=== PATIENT | male | born 1950 | race Caucasian/White ===

== ENCOUNTER 2019-07-19 12:21 | Observation (INO) | payer OTHER ==
[2019-07-19 12:30] VITALS: RESP 18
[2019-07-19] MEDS ORDERED: SODIUM CHLORIDE 0.9% 500 ML 500 ML IV STA (12:54)
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
[2019-07-19 13:22] LABS: Basophils % (A) 0 %; Eosinophils # (A) 0.1 k/uL (0-0.7); Eosinophils % (A) 1 %; HCT 45.7 % (39.0-53.0); HGB 14.7 gm/dL (13.0-17.5); Lymphocytes # (A) 1.2 k/uL (1.0-4.8); Lymphocytes % (A) 18 %; MCH 29.3 pg (25.0-35.0); MCHC 32.2 g/dL (31.0-37.0); MCV 91.2 fL (80.0-100.0); Mean Platelet Volume 7.2; Monocytes # (A) 0.3 k/uL (0-1.0); Monocytes % (A) 4 %; Neutrophils # (A) 5.2 k/uL (1.3-7.7); Neutrophils % (A) 75 %; Platelet Count 308 k/uL (150-450); RBC 5.02 m/uL (4.30-5.90); RDW 12.7 % (11.5-15.5); WBC 6.8 k/uL (3.8-10.6)
[2019-07-19 13:30] LABS: INR 0.9 (<1.2); Partial Thromboplastin Time 24.7 sec (22.0-30.0); Prothrombin Time 9.6 sec (9.0-12.0)
--- NOTE | 2019-07-19 13:39 | CT ---
EXAMINATION TYPE: CT brain wo con for TPA DATE OF EXAM: 07/19/2019 COMPARISON: None INDICATION: Lt arm numbness, MORALES DLP: 1088 mGycm, Automated exposure control for dose reduction was used. CONTRAST: None CT of the brain is performed utilizing 3 mm thick sections through the posterior fossa and 3 mm thick sections through the remaining calvarium. Study is performed within 24 hours of arrival to the hosp ital. No abnormal hyperdensity is present to suggest an acute intracranial hemorrhage. No mass lesion is evident. No acute infarcts are evident. Tiny lacunar infarct or Virchow-Trey space at the inferior left basal ganglion. Ventricles and sulci are appropriate for the patient age. Paranasal sinuses and mastoid air cells within the [id number] are clear. IMPRESSIONS: 1. No acute intracranial process. 2. Old appearing lacunar infarct or normal variant Virchow-Trey space inferior left basal ganglion.
[2019-07-19 13:42] LABS: ALT 34 U/L (4-49); AST 34 U/L (17-59); African American GFR (CKD) >90 (>60 ml/min/1.73 sqM); Albumin 3.8 g/dL (3.5-5.0); Alkaline Phosphatase 88 U/L (38-126); Anion Gap 7 mmol/L; Blood Urea Nitrogen 14 mg/dL (9-20); Calcium 9.1 mg/dL (8.4-10.2); Carbon Dioxide 25 mmol/L (22-30); Chloride 110 mmol/L (98-107); Glucose 126 mg/dL (74-99); Non-African American GFR(CKD) 88 (>60 ml/min/1.73 sqM); Potassium 4.3 mmol/L (3.5-5.1); Sodium 142 mmol/L (137-145); Total Bilirubin 0.5 mg/dL (0.2-1.3); Total Protein 6.6 g/dL (6.3-8.2)
--- NOTE | 2019-07-19 13:54 | CT ---
EXAMINATION TYPE: CT angio head neck DATE OF EXAM: 07/19/2019 HISTORY: Lt arm numbness, MORALES COMPARISON: None CT DLP: 717.1 mGycm. Automated Exposure Control for Dose Reduction was Utilized. TECHNIQUE: CTA scan of the neck is performed with IV Contrast, patient injected with 65 mL of Isovue 370, axial images are obtained, coronal and sagittal reformatted images are reviewed. Three-D recons tructed images are created on an independent workstation and reviewed. Source images are reviewed. FINDINGS: Carotid/Vascular Structures: There is a three-vessel arch. Vertebral arteries are codominant. The com mon carotid arteries bifurcate into internal and external carotid arteries without stenosis. Vertebra l arteries and internal carotid arteries are patent to the skull base. Cervical of [place]: Vertebral basilar system appears normal. Posterior cerebral vasculature is unrema rkable. Internal carotid arteries bifurcate normally into A1 and M1 segments. A2 segments are normal. The anterior communicating artery is patent. Posterior communicating arteries are absent. IMPRESSION: 1. No flow-limiting stenosis bilateral carotid bifurcations. 2. Normal [place] of [place]
--- NOTE | 2019-07-19 13:55 | XR ---
EXAMINATION TYPE: XR chest 2V DATE OF EXAM: 07/19/2019 COMPARISON: None INDICATION: Altered mental status TECHNIQUE: Frontal and lateral views of the chest are obtained. FINDINGS: The heart size is normal. The pulmonary vasculature is normal. The lungs are clear. IMPRESSION: 1. No acute pulmonary process.
[2019-07-19] MEDS ORDERED: ASPIRIN 325 MG TAB PO STA ×2 (14:15→16:19)
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
[2019-07-20 04:51] LABS: Cholesterol 164 mg/dL (<200); HDL Cholesterol 49 mg/dL (40-60); LDL Cholesterol,Calculated 100 mg/dL (0-99); Triglycerides 75 mg/dL (<150)
[2019-07-20] MEDS ORDERED: ASPIRIN 325 MG TAB PO SCH (09:00)
--- NOTE | 2019-07-20 10:59 | ECHOF ---
Referral Reason:CVA/ TIA MEASUREMENTS -------- HEIGHT: 175.3 cm WEIGHT: 98.9 kg BP: 178/101 RVIDd: 4.4 cm (< 3.3) IVSd: 1.4 cm (0.6 - 1.1) LVIDd: 4.8 cm (3.9 - 5.3) LVPWd: 1.6 cm (0.6 - 1.1) IVSs: 2.0 cm LVIDs: 3.3 cm LVPWs: 2.1 cm LAESV Index (A-L): 38.05 ml/m Ao Diam: 3.7 cm (2.0 - 3.7) AV Cusp: 2.5 cm (1.5 - 2.6) MV EXCURSION: 21.866 mm (> 18.000) MV EF SLOPE: 119 mm/s (70 - 150) EPSS: 0.8 cm MV E Dio: 0.78 m/s MV DecT: 209 ms MV A Dio: 0.58 m/s MV E/A Ratio: 1.34 RAP: 5.00 mmHg RVSP: 16.42 mmHg FINDINGS -------- Resting bradycardia (HR<60bpm). This was a technically difficult study with suboptimal apical views. The left ventricular size is normal. There is moderate concentric left ventricular hypertrophy. O verall left ventricular systolic function is normal with, an EF between 55 - 60 %. The diastolic fi lling pattern is normal for the age of the patient 13.28. The right ventricle is moderately enlarged. LA is moderately dilated 34-39 ml/m2 The right atrium is mildly enlarged. 5.0mg of Lumason was utilized for enhancement of images Interatrial and interventricular septum intact. The aortic valve is trileaflet and appears structurally normal. There is no evidence of aortic regu rgitation. There is no evidence of aortic stenosis. Gxbe-ft-[id number] mitral regurgitation is present. Mild tricuspid regurgitation present. There is no evidence of pulmonary hypertension. The right v entricular systolic pressure, as measured by Doppler, is 16.42mmHg. There is no pulmonic regurgitation present. The aortic root size is normal. IVC Not well visulized. There is no pericardial effusion. CONCLUSIONS -------- 1. Resting bradycardia (HR<60bpm). 2. This was a technically difficult study with suboptimal apical views. 3. The left ventricular size is normal. 4. There is moderate concentric left ventricular hypertrophy. 5. Overall left ventricular systolic function is normal with, an EF between 55 - 60 %. 6. The diastolic filling pattern is normal for the age of the patient 13.28 7. The right ventricle is moderately enlarged. 8. LA is moderately dilated 34-39 ml/m2 9. The right atrium is mildly enlarged. 10. 5.0mg of Lumason was utilized for enhancement of images 11. Interatrial and interventricular septum intact. 12. The aortic valve is trileaflet and appears structurally normal. 13. There is no evidence of aortic regurgitation. 14. There is no evidence of aortic stenosis. 15. [id number] mitral regurgitation is present. 16. Mild tricuspid regurgitation present. 17. There is no evidence of pulmonary hypertension. 18. The right ventricular systolic pressure, as measured by Doppler, is 16.42mmHg. 19. There is no pulmonic regurgitation present. 20. The aortic root size is normal. 21. IVC Not well visulized. 22. There is no pericardial effusion. SHEET CATCHER: Selma Brown RDCS
--- NOTE | 2019-07-20 11:23 | P.DS ---
Providers Date of admission: 07/19/19 16:19 Attending physician: Zeeshan Yen Consults: 07/20/19 10:26 Consult Physician Routine Consulting Provider: Chauncey Gonzalez Consult Reason/Comments: TIA Do you want consulting provider notified?: Yes Primary care physician: Stated None Hospital Course: Patient is admitted for a TIA involving the left arm which is tingling and numbness. Patient will be a valid by neurology his symptoms completely resolved after neurological evaluation if needed will get an MRI for him echocardiogram is pending rest of the workup including CT angios and CT of the head did not show any significant acute stroke. Patient blood pressure is bit elevated but patient will not be started on any the hypertensive medications at this time with as patient probably had TIA. will be referred to PCP after evaluation by neurology patient will be discharged. PHYSICAL EXAMINATION: GENERAL: The patient is alert and oriented x3, not in any acute distress. Well developed, well nourished. HEENT: Pupils are round and equally reacting to light. EOMI. No scleral icterus. No conjunctival pallor. Normocephalic, atraumatic. No pharyngeal erythema. No thyromegaly. CARDIOVASCULAR: S1 and S2 present. No murmurs, rubs, or gallops. PULMONARY: Chest is clear to auscultation, no wheezing or crackles. ABDOMEN: Soft, nontender, nondistended, normoactive bowel sounds. No palpable organomegaly. MUSCULOSKELETAL: No joint swelling or deformity. EXTREMITIES: No cyanosis, clubbing, or pedal edema. NEUROLOGICAL: Gross neurological examination did not reveal any focal deficits. SKIN: No rashes. The rest of the medical problems hospital physician: Kimberly which might be from yesterday Plan - Discharge Summary Discharge Rx Participant: Yes New Discharge Prescriptions: New Aspirin 325 mg PO DAILY #30 tab Atorvastatin Calcium [Lipitor] 20 mg PO HS #30 tab Discharge Medication List Aspirin 325 mg PO DAILY #30 tab 07/20/19 [Rx] Atorvastatin Calcium [Lipitor] 20 mg PO HS #30 tab 07/20/19 [Rx] Follow up Appointment(s)/Referral(s): Jerri Duggan MD [STAFF PHYSICIAN] - 1 Week Discharge Disposition: HOME SELF-CARE
[2019-07-20] MEDS ORDERED: ATORVASTATIN 10 MG TAB PO SCH (12:15)
[2019-07-20 12:20] VITALS: BP 179/98; PULSE 61; TEMP 97.7
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
--- NOTE | 2019-07-20 15:09 | MR ---
"EXAMINATION TYPE: MR brain wo con DATE OF EXAM: 07/20/2019 COMPARISON: CT brain one day earlier. HISTORY: Lt arm numbness, TIA vs CVA TECHNIQUE: Multiplanar, multisequence imaging of the brain and brainstem is performed without IV cont rast. FINDINGS: Diffusion weighted images demonstrate multifocal areas of increased signal on diffusion-weighted imag es with diminished signal on ADC mapping involving the frontal and parietal lobes on the right throug hout the predominant subcortical levels. For reference there is serpiginous 12 x 8 mm area diffusion series 305 image 176 with T2 hyperintensity. There is no significant extra-axial fluid collection. The ventricular system and cisternal spaces ar e normal in size and appearance. The brain volume is age appropriate. Few tiny scattered foci of T2 hyperintensity noted throughout the deep white matter bilaterally. Midline structures demonstrate normal morphology. The craniocervical junction appears within normal limits. Normal vascular flow voids are present. Tiny eccentric mucosal thickening in the right maxill stevenson sinus with additional tiny bilateral polyps and/or cysts. Remainder sinuses clear. Globes are int act bilaterally. IMPRESSION: Multifocal areas of acute infarct in the right frontal and parietal lobes MCA distributio n are noted. A Yellow level critical message alert has been initiated for Zeeshan Yen MD via the [employer] [facility] | Critical Results System on 07/20/2019 3:06 PM. This message alert has been sent to Zeeshan ryan MD via the preferences provided by the clinician for the receipt of Radiology Critical Findin gs. Message ID [id number]."
== END 2019-07-20 16:40 | disposition home or self-care (01) ==
LOC: EC 12:21 → 3SCARD 16:19
PROVIDERS: ADMIT Internal Medicine; ATTEND Internal Medicine
DX: G45.9 Transient cerebral ischemic attack, unspecified (principal); R03.0 Elevated blood-pressure reading, without diagnosis of hypertension; E78.5 Hyperlipidemia, unspecified; E66.9 Obesity, unspecified; Z68.33 Body mass index [BMI] 33.0-33.9, adult; Z79.82 Long term (current) use of aspirin; Z79.899 Other long term (current) drug therapy; Z11.59 Encounter for screening for other viral diseases
CPT/HCPCS: 96360; 99285; 36415; 93005; 93306; 97161; 97165; 80061 ×2; 80053; 84484; 85025; 85610; 85730; 71046; 70496; 70450; 70498; 70551; G0378 ×2; U0003; Q9950; Q9967

== ENCOUNTER 2020-12-04 16:07 | Inpatient (IN) | payer MEDICARE, SELFPAY ==
[2020-12-04] MEDS ORDERED: ASPIRIN 81 MG PO STA (16:43)
[2020-12-04] MEDS ORDERED: NITROGLYCERIN SL TABS 0.4 MG TAB SUBLINGUAL STA ×3 (16:43)
[2020-12-04] MEDS ORDERED: SODIUM CHLORIDE 0.9% 500 ML 500 ML IV STA (16:43)
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
[2020-12-04 17:04] LABS: Albumin 4.1 g/dL (3.5-5.0); Calcium 9.1 mg/dL (8.4-10.2); INR 0.9 (<1.2); Magnesium 1.9 mg/dL (1.6-2.3); Potassium 4.3 mmol/L (3.5-5.1); Prothrombin Time 9.6 sec (9.0-12.0); Total Bilirubin 0.4 mg/dL (0.2-1.3); Total Protein 7.1 g/dL (6.3-8.2)
[2020-12-04] MEDS ORDERED: hydrALAZINE HCL 20 MG/ML 1 ML VIAL IVP STA ×2 (17:21→20:10)
[2020-12-04 17:25] LABS: Basophils # (A) 0.1 k/uL (0-0.2); Basophils % (A) 0 %; Eosinophils # (A) 0.2 k/uL (0-0.7); Eosinophils % (A) 2 %; HCT 46.5 % (39.0-53.0); HGB 14.8 gm/dL (13.0-17.5); Lymphocytes # (A) 2.1 k/uL (1.0-4.8); Lymphocytes % (A) 19 %; MCH 29.1 pg (25.0-35.0); MCHC 31.8 g/dL (31.0-37.0); MCV 91.5 fL (80.0-100.0); Mean Platelet Volume 7.3; Monocytes # (A) 0.5 k/uL (0-1.0); Monocytes % (A) 5 %; Neutrophils # (A) 8.1 k/uL (1.3-7.7); Neutrophils % (A) 72 %; Platelet Count 312 k/uL (150-450); RBC 5.08 m/uL (4.30-5.90); RDW 12.5 % (11.5-15.5); WBC 11.3 k/uL (3.8-10.6)
[2020-12-04] MEDS ORDERED: HEPARIN SODIUM 1,000 UN/ML (10ML VL) IV ONE ×2 (17:27→19:54)
[2020-12-04] MEDS ORDERED: HEPARIN SOD,PORK IN 0.45% NACL 25,000 UNIT in 0.45% NACL 1 250ML.BAG IV SCH (17:30)
--- NOTE | 2020-12-04 19:11 | CT ---
EXAMINATION TYPE: CT angio thor/abd pel aorta DATE OF EXAM: 12/04/2020 COMPARISON: None HISTORY: Severe chest pain CT DLP: 2355.8 mGycm. Automated Exposure Control for Dose Reduction was Utilized. CONTRAST: CT scan of the thorax, abdomen and pelvis is performed without and with IV Contrast, patient injected with 100 mL of Isovue 370. Three-dimensional reconstructions performed on an alternate workstation FINDINGS: The aorta shows normal caliber at the ascending aorta measuring approximately 3.5 cm with t he root measuring 3.8 cm, proximal descending aorta is mildly ectatic at 3 cm, the aorta measures marisol roximately 2.6 cm at the level of the hiatus is normal within the abdomen. There is no evident dissec tion. 3 super aortic branch vessels are present and are patent. The celiac axis, superior mesenteric artery, bilateral renal arteries, inferior mesenteric artery, common iliac, internal and external edmond ac arteries, common femoral and proximal deep and superficial femoral arteries are normal LUNGS: The lungs are grossly clear, there is no concerning parenchymal mass or nodule identified. T here is no pleural effusion or pneumothorax seen. The tracheobronchial tree is patent. MEDIASTINUM: There are no greater than 1 cm hilar or mediastinal lymph nodes. No pericardial effusi on is seen. OTHER: No additional significant abnormality is seen. LIVER/GB: No significant abnormality is appreciated. PANCREAS: No significant abnormality is seen. SPLEEN: No significant abnormality is seen. ADRENALS: No significant abnormality is seen. KIDNEYS: No significant abnormality is seen. BOWEL: Diverticular changes are present especially in the sigmoid colon, descending colon, the append ix is normal. GENITAL ORGANS: Prostate is enlarged and shows associated calcification. LYMPH NODES: No greater than 1cm abdominal or pelvic lymph nodes are appreciated. OSSEOUS STRUCTURES: Degenerative disc changes, facet arthropathy noted especially in the lower lumbar spine. OTHER: There is a right inguinal hernia containing fat, umbilical hernia contains fat. IMPRESSION: No abnormality evident to account for patient's symptoms. Diverticulosis.
[2020-12-04] MEDS ORDERED: NITROGLYCERIN SL TABS 0.4 MG TAB SUBLINGUAL PRN (20:02)
[2020-12-04] MEDS: HEPARIN SOD,PORK IN 0.45% NACL 25,000 UNIT in 0.45% NACL 1 250ML.BAG IV SCH (20:26)
[2020-12-04] MEDS: ATORVASTATIN 80 MG TAB PO SCH (21:52)
[2020-12-04] MEDS: METOPROLOL TARTRATE 25 MG TAB PO SCH (21:52)
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
[2020-12-05] MEDS: NITROGLYCERIN OINT 1 INCH/GM PACKET TOPICAL SCH ×4 (01:37→18:36)
[2020-12-05] MEDS ORDERED: HEPARIN SODIUM 1,000 UN/ML (10ML VL) IV PRN (03:51)
[2020-12-05] MEDS ORDERED: ALPRAZolam 0.5 MG TAB PO PRN (08:20)
[2020-12-05] MEDS ORDERED: ALPRAZolam 0.25 MG TAB PO PRN (08:20)
[2020-12-05] MEDS ORDERED: ASPIRIN 325 MG TAB PO SCH (09:00)
[2020-12-05] MEDS: METOPROLOL TARTRATE 25 MG TAB PO SCH ×2 (09:39→21:44)
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
[2020-12-05 10:59] LABS: Chol/HDL Ratio 4.17 Ratio; HDL Cholesterol 44.8 mg/dL (40.00-60.00); LDL Cholesterol,Calculated 113.8 mg/dL (0.0-131.0); VLDL Calculation 28.4 mg/dL (5.00-40.00)
--- NOTE | 2020-12-05 11:41 | ECHOF ---
Referral Reason:LV function MEASUREMENTS -------- HEIGHT: 175.3 cm WEIGHT: 106.1 kg BP: IVSd: 1.4 cm (0.6 - 1.1) LVIDd: 3.4 cm (3.9 - 5.3) LVPWd: 1.5 cm (0.6 - 1.1) EDV(Teich): 48 ml IVSs: 2.0 cm LVIDs: 1.6 cm LVPWs: 1.9 cm %IVS Thck: 40 % ESV(Teich): 7 ml EF(Teich): 86 % %FS: 54 % SV(Teich): 42 ml Ao Diam: 3.6 cm (2.0 - 3.7) LA Diam: 3.0 cm (2.7 - 3.8) AV Cusp: 1.8 cm (1.5 - 2.6) EPSS: 1.5 cm MV E Dio: 0.56 m/s MV DecT: 200 ms MV Dec Nolan: 2.8 m/s MV A Dio: 0.78 m/s MV E/A Ratio: 0.72 MV PHT: 58 ms MR Vmax: 1.28 m/s MR maxP.51 mmHg AV Vmax: 1.40 m/s AV maxP.89 mmHg TR Vmax: 1.59 m/s TR maxP.17 mmHg RAP: 5.00 mmHg RVSP: 15.17 mmHg MV EF SLOPE: 94.59 mm/s (70 - 150) MV EXCURSION: 13.60 mm (> 18.000) FINDINGS -------- This was a technically difficult study with suboptimal views. The left ventricular size is normal. There is moderate concentric left ventricular hypertrophy. O verall left ventricular systolic function is normal with, an EF between 55 - 60 %. The right ventricle is normal in size. The left atrial size is normal. The right atrial size is normal. Lumason used The aortic valve was not well visualized. The mitral valve was not well visualized. There is trace mitral regurgitation. The tricuspid valve was not well visualized. Trace tricuspid regurgitation present. Right ventric ular systolic pressure is normal at < 35 mmHg. The pulmonic valve was not well visualized. The aortic root size is normal. IVC Not well visulized. There is no pericardial effusion. CONCLUSIONS -------- 1. The left ventricular size is normal. 2. There is moderate concentric left ventricular hypertrophy. 3. Overall left ventricular systolic function is normal with, an EF between 55 - 60 %. 4. There is trace mitral regurgitation. 5. Trace tricuspid regurgitation present. 6. There is no pericardial effusion. HEAD AND NECK SURGEON: Rosy Acevedo RDCS
[2020-12-05] MEDS ORDERED: VERAPAMIL 2.5 MG/ML 2 ML AMP ONE (11:51)
[2020-12-05] MEDS ORDERED: LIDOCAINE 1% INJ 10MG/ML (20 ML MDV) ONE (11:51)
[2020-12-05] MEDS ORDERED: IV FLUID CONTINUATION 600 ML IV ONE (12:05)
[2020-12-05] MEDS ORDERED: MIDAZOLAM 2 MG/2 ML VIAL IVP ONE (12:13)
[2020-12-05] MEDS ORDERED: LIDOCAINE 1% INJ 10MG/ML (20 ML MDV) SQ ONE (12:26)
[2020-12-05] MEDS ORDERED: VERAPAMIL SYRINGE (5 MG/10 ML) INTRAARTER ONE (12:28)
[2020-12-05] MEDS ORDERED: HEPARIN SODIUM 1,000 UN/ML (10ML VL) ONE (12:28)
[2020-12-05] MEDS ORDERED: HEPARIN SODIUM 1,000 UN/ML (10ML VL) IVP ONE (12:29)
[2020-12-05] MEDS: SODIUM CHLORIDE 0.9% 1,000 ML in EMPTY BAG 1 BAG IV SCH (13:16)
[2020-12-05] MEDS: NITROGLYCERIN 1000MCG/10ML SYRINGE INTRACORON ONE ×2 (13:17→13:35)
[2020-12-05] MEDS ORDERED: HYDROmorphone 1 MG/ML 1 ML SYRINGE ONE (13:22)
[2020-12-05] MEDS ORDERED: HYDROmorphone 1 MG/ML 1 ML SYRINGE IVP ONE (13:25)
[2020-12-05] MEDS ORDERED: TIROFIBAN BOLUS 12.5MG/250 ML BAG IV ONE (13:30)
[2020-12-05] MEDS ORDERED: IOPAMIDOL-370 125ML BTL INJ ONE (13:30)
[2020-12-05] MEDS ORDERED: niCARdipine 25 MG/10 ML VIAL ONE (13:34)
[2020-12-05] MEDS ORDERED: TIROFIBAN 12.5MG-250ML NS 250 ML IV ONE (13:35)
[2020-12-05] MEDS ORDERED: niCARdipine Syringe (1,000 mcg/10 mL) INTRACORON ONE (13:35)
[2020-12-05] MEDS ORDERED: TICAGRELOR 90 MG TAB ONE (13:39)
[2020-12-05] MEDS ORDERED: TICAGRELOR 90 MG TAB PO ONE (13:40)
[2020-12-05] MEDS ORDERED: IOPAMIDOL-370 100ML BTL INJ ONE (13:40)
--- NOTE | 2020-12-05 14:53 | CC ---
CARDIAC CATHETERIZATION REPORT CARDIAC CATHETERIZATION AND PERCUTANEOUS CORONARY INTERVENTION: DATE OF SERVICE: 12/05/2020 PERFORMING PHYSICIAN: Catrachito Prieto M.D. PROCEDURES PERFORMED: 1. Selective right and left coronary angiogram. 2. Left heart catheterization. 3. Successful stenting of the distal right coronary artery using a 3.5 x 38 mm Xience drug-eluting stent with an excellent angiographic result. 4. Successful stenting of the mid right coronary artery using a 4.0 x 38 mm Xience drug-eluting stent with an excellent angiographic result. INDICATION: This is a 70-year-old gentleman with no significant past medical history who presented to the hospital with chest discomfort and ruled in for acute [id number] myocardial infarction. APPROACH: Right radial artery. COMPLICATIONS: None. LEVEL OF SEDATION: Moderate, with sedation length of 75 minutes. PROCEDURE DESCRIPTION: After obtaining informed consent, the patient was brought to the cardiac cath lab nurse. The right radial artery was cannulated using micropuncture technique. The micropuncture wire passed easily. Then I placed a 6-Azeri sheath at the right radial artery. I did give the patient 2 mg of verapamil IA and 8000 units of heparin IV. After that I did selective right and left coronary angiogram. That was performed using JR4 and JL3.5 catheters. After that I did intervene on the right coronary artery. Please see separate paragraph for that. SELECTIVE CORONARY ANGIOGRAM: 1. The right coronary artery is a large-caliber vessel. It is a dominant vessel. The RCA is diffusely diseased up to about 80% in the mid portion and 99.9% in the distal portion. 2. The left main is angiographically normal. It bifurcates into left circumflex and left anterior descending artery. 3. The left circumflex is a medium-caliber vessel. It is a nondominant vessel. The proximal left circumflex gives rise to a large OM branch which has a lesion proximally that appeared to be in the range of 70% to 80%. The circumflex continues after that as a medium-caliber vessel in the groove and gives rise to multiple obtuse marginal branches. They all appeared to be small-caliber vessels. 4. The left anterior descending artery. The proximal LAD has a lesion that appeared to be in the range of 30% to 40%. The mid LAD has a lesion that appeared to be in the range of 10% to 20%. The LAD distally appeared to be angiographically normal. LAD gives rise to a diagonal branch which has a lesion that appeared to be in the range of 60% to 70% in the mid portion. 5. HEMODYNAMICS: The LVEDP was about 10 to 12 mmHg without significant gradient across the aortic valve. PERCUTANEOUS CORONARY INTERVENTION OF THE RCA: Anticoagulation, as I mentioned earlier, was achieved using heparin with continuous ACT monitoring throughout the procedure. Subsequently I did engage the RCA using an AL0.75 guiding catheter. I did wire the RCA using a run-through wire. Balloon angioplasty was performed using a 3.5 x 15 mm balloon. I did balloon angioplasty of the whole segment of the mid and distal RCA. After that, I advanced a 3.5 x 38 mm Xience drug-eluting stent where the stent was positioned distally under fluoroscopic guidance and deployed under 12 atmospheres for 20 seconds. Subsequently, attempting to advance a 4.0 x 38 mm stent was unsuccessful in spite of using GuideLiner. After that, using double wire, I was able to get the stent down to the mid RCA, where the stent was again positioned under fluoroscopic guidance and deployed under its nominal pressure. The stent was deployed with about a 2 mm overlap between this stent and the previous stent. After that I did an angiogram which revealed a clot that seemed to be in the mid and distal stent in the distal right coronary artery. I decided to do aspiration thrombectomy, but the aspiration thrombectomy would not make the turn distally. I decided to do balloon angioplasty. Also at the same time I started Aggrastat. Balloon angioplasty was performed using a 3.0 x 15 mm balloon where I did balloon angioplasty of that thrombotic lesion inside the stent distally. Subsequently, the following angiogram showed excellent angiographic results with improvement in the thrombus burden. It was RIAN-3 flow. I decided to stop because the patient was asymptomatic. CONCLUSION: 1. Acute oiq-FE-lpcnbmije myocardial infarction. 2. Critical disease involving a dominant right coronary artery in the mid as well as distal portions. 3. Successful stenting of the RCA using two drug-eluting stents with an excellent angiographic result. 4. Severe disease involving the first obtuse marginal branch of the left circumflex. 5. Severe disease involving the first diagonal branch of the LAD as well. 6. Intermediate disease involving the left anterior descending artery. 7. Normal LVEDP. POST-PROCEDURE MANAGEMENT: Medical treatment and follow up with the patient. MMODL / IJN: [id number] /
--- NOTE | 2020-12-05 16:00 | P.PN ---
Progress Note - Text Progress Note Date: 12/05/20 Chief Complaint: Chest tenderness This is a pleasant 70-year-old patient of Dr. Bojorquez. On a prior history of TIA. Does not take any medications. Patient yesterday after driving notice a heaviness across the chest. Could not get his breath. Slight dizziness lighth eadedness perspiration. Symptoms last for at least 15 minutes. Came home. Symptoms came back again. Decided to come in. Initial troponin was started to get positive. Admitted with non-Q-wave IL. Started IV heparin. No prior cardiac history. Patient ruled in for acute non-Q-wave IL. IV heparin. December 05: Laying in bed. No chest pain. IV heparin. Pending cardiac catheterization. Review of systems: Was done for constitutional, cardiovascular, GI, pulmonary. relevant finding as above Active Medications Alprazolam (Alprazolam 0.25 Mg Tab) 0.25 mg PO Q6HR PRN PRN Reason: Mild Anxiety Alprazolam (Alprazolam 0.5 Mg Tab) 0.5 mg PO Q6HR PRN PRN Reason: Moderate Anxiety Aspirin (Aspirin 81 Mg) 81 mg PO DAILY RICARDO Atorvastatin Calcium (Atorvastatin 80 Mg Tab) 80 mg PO HS RICARDO Last Admin: 12/04/20 21:52 Dose: 80 mg Documented by: Heparin Sodium (Porcine) (Heparin Sodium 1,000 Un/Ml (10ml Vl)) 0 unit IV PER PROTOCOL PRN; Protocol PRN Reason: Low PTT Last Admin: 12/05/20 03:58 Dose: 4,000 unit Documented by: Heparin Sodium/Sodium Chloride (25,000 unit/ Sodium Chloride) 250 mls @ 10 mls/hr IV .Q24H RICARDO; Protocol Last Titration: 12/05/20 03:56 Dose: 12.5 units/kg/hr, 13.041 mls/hr Documented by: Sodium Chloride 1,000 ml/ IV (Solution) 1,000 mls @ 106.5 mls/hr IV .Q9H24M RICARDO Last Admin: 12/05/20 13:16 Dose: Not Given Documented by: Heparin Sodium (Porcine) 10, (000 unit/ Sodium Chloride) 1,001 mls @ 999 mls/hr IRRIGATION ONCE PRN PRN Reason: INTRA-OP Stop: 12/06/20 23:00 Heparin Sodium (Porcine) 2,500 (unit/ Sodium Chloride) 250.5 mls @ 250 mls/hr IRRIGATION ONCE PRN PRN Reason: INTRA-OP Stop: 12/06/20 23:00 Metoprolol Tartrate (Metoprolol Tartrate 25 Mg Tab) 25 mg PO BID [facility] Last Admin: 12/05/20 09:39 Dose: 25 mg Documented by: Nitroglycerin (Nitroglycerin Sl Tabs 0.4 Mg Tab) 0.4 mg SUBLINGUAL Q5M PRN PRN Reason: Chest Pain Nitroglycerin (Nitroglycerin Oint 1 Inch/Gm Packet) 1 inch TOPICAL Q6HR [facility] Last Admin: 12/05/20 13:16 Dose: Not Given Documented by: Past medical history to include: TIA Social history: Works in the [employer] department. . No history of smoking or alcohol. Family history: Reviewed, noncontributory to presentation Physical examination: VITAL SIGNS: 99, 82, 18, 1 24 x 74, 94% room air GENERAL: Laying in bed, comfortable EYES: Pupils equal. Conjunctiva normal. HEENT: External appearance of nose and ears normal, oral cavity grossly normal. NECK: JVD not raised; masses not palpable. HEART: First and second heart sounds are normal; no edema. LUNGS: Respiratory rate normal; clear to auscultation. ABDOMEN: Soft, nontender, liver spleen not palpable, no masses palpable. PSYCH: Alert and oriented x3; mood and affect normal. INVESTIGATIONS, reviewed in the clinical context: December 05: Troponin 2.5 and LDL 113 WBC 11.3 hemoglobin 14.8 platelets 312 potassium 4.3 BUN 22 crit 1.08 d-dimer 0.34 Troponin I 0.6, 1.4 Coronavirus [PCR]: Not detected EKG tracing personally reviewed by me-normal sinus rhythm, intraventricular block. Rate [address]: Right inguinal hernia. Diverticulosis. Sigmoid colon. Prostate is enlarged. Assessment and plan: -Acute non-Q-wave myocardial infarction. IV heparin. Aspirin. Lipitor. Beta jorge. Pending cardiac catheterization -Accelerated hypertension Lopressor 25 mg twice a day. -Sigmoid diverticulosis, asymptomatic -BPH -Right inguinal hernia. asymptomatic -IV heparin monitoring Follow PTT Continue current medication treatment plan. Pending cardiac catheterization this point. Discussed with patient.
[2020-12-05] MEDS ORDERED: ONDANSETRON 4 MG/2 ML VIAL IVP PRN (17:46)
[2020-12-05] MEDS ORDERED: RX INFO: IV CONTRAST WAS GIVEN 1 EACH MISC MISCELLANE PRN (18:49)
[2020-12-05] MEDS: HEPARIN SOD,PORK IN 0.45% NACL 25,000 UNIT in 0.45% NACL 1 250ML.BAG IV SCH (21:10)
[2020-12-05] MEDS: ATORVASTATIN 80 MG TAB PO SCH (21:44)
[2020-12-06] MEDS: SODIUM CHLORIDE 0.9% 1,000 ML in EMPTY BAG 1 BAG IV SCH ×3 (00:37→13:59)
[2020-12-06] MEDS: NITROGLYCERIN OINT 1 INCH/GM PACKET TOPICAL SCH ×3 (00:38→11:30)
[2020-12-06] MEDS ORDERED: HEPARIN SODIUM,PORCINE 2,500 UNIT in SODIUM CHLORIDE 0.9% 250 ML IRRIGATION PRN (07:00)
[2020-12-06] MEDS ORDERED: HEPARIN SODIUM,PORCINE 10,000 UNIT in SODIUM CHLORIDE 0.9% 1,000 ML IRRIGATION PRN (07:00)
[2020-12-06 08:38] LABS: Calcium 9.1 mg/dL (8.4-10.2); Potassium 4.4 mmol/L (3.5-5.1)
[2020-12-06] MEDS: METOPROLOL TARTRATE 25 MG TAB PO SCH (08:43)
[2020-12-06] MEDS ORDERED: ASPIRIN 81 MG PO SCH (09:00)
[2020-12-06] MEDS ORDERED: TICAGRELOR 90 MG TAB PO SCH (09:00)
--- NOTE | 2020-12-06 09:03 | P.PN ---
Subjective Progress Note Date: 12/06/20 Principal diagnosis: Acute coronary syndrome The patient is a 70-year-old gentleman who was admitted to the hospital with acute coronary syndrome and underwent a heart catheterization that revealed critical disease involving the RCA and severe disease involving the ramus intermedius. He underwent successful stenting of the RCA with an excellent angiographic results. He was seen this morning. He is asymptomatic. He is hemodynamically stable. The right radial site is soft and nontender without any bruises. The patient can be discharged home on dual antiplatelet therapy along with high intensity statin along with metoprolol. He needs to be seen as an outpatient. The echo revealed normal left ventricular systolic function Objective - Vital Signs Vital signs: Vital Signs Temp 97.9 F 12/06/20 03:30 Pulse 74 12/06/20 03:30 Resp 18 12/06/20 03:30 BP 129/75 12/06/20 03:30 Pulse Ox 94 L 12/06/20 03:30 Intake & Output 12/05/20 12/06/20 12/06/20 18:59 06:59 18:59 Intake Total 350 1007 175 Balance 350 1007 175 Weight 106 kg Intake: IV 350 Intake, IV Titration 770 175 Amount Heparin Sod,Pork in 0.45% 175 NaCl 25,000 unit In 0.45 % NaCl 1 250ml.bag @ 9. 585 UNITS/KG/HR 10 mls/hr IV .Q24H RICARDO Rx#: [id number] IV Fluid Continuation 600 770 ml @ 0 mls/hr IV .STK- MED ONE Rx#:[id number] Oral 237 Other: # Voids 1 1 - Constitutional General appearance: Present: no acute distress - Respiratory Respiratory: bilateral: CTA - Cardiovascular Rhythm: regular Heart sounds: normal: S1, S2 - Labs CBC & Chem 7: 12/04/20 16:48 12/06/20 07:17 Labs: Abnormal Lab Results - Last 24 Hours (Table) 12/05/20 12/06/20 Range/Units 08:46 07:17 APTT 40.5 H (22.0-30.0) sec Chloride 109 H (98-107) mmol/L Glucose 103 H (74-99) mg/dL Assessment and Plan Assessment: Assessment #1 acute coronary syndrome #2 status post PCI of the RCA #3 hypertension #4 dyslipidemia Plan #1 continue dual antiplatelet therapy along with high intensity statin #2 the patient can be discharged home
[2020-12-06 12:15] VITALS: RESP 16
--- NOTE | 2020-12-06 15:36 | P.DS ---
Providers Date of admission: 12/04/20 20:02 Expected date of discharge: 12/06/20 Attending physician: Jayson Ansari Consults: 12/04/20 20:02 Consult Physician Urgent Consulting Provider: [facility] Consult Reason/Comments: Non-STEMI, hypertensive urgency Do you want consulting provider notified?: Yes Primary care physician: [facility] Course: Chief Complaint: Chest tenderness This is a pleasant 70-year-old patient of Dr. Bojorquez. On a prior history of TIA. Does not take any medications. Patient yesterday after driving notice a heaviness across the chest. Could not get his breath. Slight dizziness lightheadedness perspiration. Symptoms last for at least 15 minutes. Came home. Symptoms came back again. Decided to come in. Initial troponin was started to get positive. Admitted with non-Q-wave CA. Started IV heparin. No prior cardiac history. Patient ruled in for acute non-Q-wave CA. IV heparin. December 05: Laying in bed. No chest pain. IV heparin. Pending cardiac catheterization. December 06: Patient underwent cardiac catheterization yesterday. Angioplasty stenting to RCA was done. Patient also found to have severe disease involving the first obtuse marginal branch of left circumflex, first diagonal branch of the LAD and intermediate disease of the LAD. Patient doing better today. No chest pain or shortness of breath. Cleared by cardiology. Consultation: Dr. Ledesma from cardiology Past medical history to include: TIA Social history: Works in the [employer] department. . No history of smoking or alcohol. Family history: Reviewed, noncontributory to presentation Physical examination: VITAL SIGNS: 97.6, 69, 16, 1 5694, 94% room air GENERAL: Laying in bed, comfortable EYES: Pupils equal. Conjunctiva normal. HEENT: External appearance of nose and ears normal, oral cavity grossly normal. NECK: JVD not raised; masses not palpable. HEART: First and second heart sounds are normal; no edema. LUNGS: Respiratory rate normal; clear to auscultation. ABDOMEN: Soft, nontender, liver spleen not palpable, no masses palpable. PSYCH: Alert and oriented x3; mood and affect normal. INVESTIGATIONS, reviewed in the clinical context: December 06: Potassium 4.4 creatinine 1.01 LDL 113 December 05: Troponin 2.5 and LDL 113 WBC 11.3 hemoglobin 14.8 platelets 312 potassium 4.3 BUN 22 crit 1.08 d-dimer 0.34 Troponin I 0.6, 1.4 Coronavirus [PCR]: Not detected EKG tracing personally reviewed by me-normal sinus rhythm, intraventricular block. Rate [address]: Right inguinal hernia. Diverticulosis. Sigmoid colon. Prostate is enlarged. Assessment and plan: -Acute non-Q-wave myocardial infarction. IV heparin. Aspirin. Lipitor. Beta jorge. -CAD, with stent to circumflex Hour cardiac cath results and cardiology notes -Essential hypertension Lopressor 25 mg twice a day. Add Cozaar 50 mg daily at bedtime -Sigmoid diverticulosis, asymptomatic -BPH -Right inguinal hernia. asymptomatic -IV heparin monitoring: Discontinued Disposition: Home Plan - Discharge Summary Discharge Rx Participant: Yes New Discharge Prescriptions: New Aspirin 81 mg PO DAILY #30 tab Ticagrelor [Brilinta] 90 mg PO BID #60 tab Metoprolol Tartrate [Lopressor] 25 mg PO BID #60 tab Losartan Potassium [Cozaar] 50 mg PO HS #30 tablet Atorvastatin [Lipitor] 80 mg PO HS #30 tab Nitroglycerin Sl Tabs [Nitrostat] 0.4 mg SUBLINGUAL Q5M PRN #30 tab PRN Reason: Chest Pain Discharge Medication List Aspirin 81 mg PO DAILY #30 tab 12/06/20 [Rx] Atorvastatin [Lipitor] 80 mg PO HS #30 tab 12/06/20 [Rx] Losartan Potassium [Cozaar] 50 mg PO HS #30 tablet 12/06/20 [Rx] Metoprolol Tartrate [Lopressor] 25 mg PO BID #60 tab 12/06/20 [Rx] Nitroglycerin Sl Tabs [Nitrostat] 0.4 mg SUBLINGUAL Q5M PRN #30 tab 12/06/20 [Rx] Ticagrelor [Brilinta] 90 mg PO BID #60 tab 12/06/20 [Rx] Follow up Appointment(s)/Referral(s): Dontrell Bojorquez DO [Primary Care Provider] - 1-2 days (office closed for please follow up and make appointment tuesday) Catrachito Prieto MD [STAFF PHYSICIAN] - 1 Week (office closed for please follow up and make appointment tuesday) Patient Instructions/Handouts: Heart Healthy Diet (ED), Hypertension (DC), Heart Catheterization (DC) Activity/Diet/Wound Care/Special Instructions: For assistance with meds use [employer] (this can provide a discount on some meds).
[2020-12-06 16:21] VITALS: BP 135/77; PULSE 75; TEMP 98.5
== END 2020-12-06 16:16 | disposition home or self-care (01) | DRG 247 ==
LOC: EC 16:07 → 3SCARD 20:02
PROVIDERS: ADMIT Hospitalist; ATTEND Hospitalist
PROC: 027034Z Dilation of Coronary Artery, One Artery with Drug-eluting Intraluminal Device, Percutaneous Approach (ICD-10-PCS; principal; 2020-12-04)
PROC: 02C03ZZ Extirpation of Matter from Coronary Artery, One Artery, Percutaneous Approach (ICD-10-PCS; 2020-12-04)
PROC: 4A023N7 Measurement of Cardiac Sampling and Pressure, Left Heart, Percutaneous Approach (ICD-10-PCS; 2020-12-04)
PROC: B2111ZZ Fluoroscopy of Multiple Coronary Arteries using Low Osmolar Contrast (ICD-10-PCS; 2020-12-04)
DX: I21.4 Non-ST elevation (NSTEMI) myocardial infarction (principal); I16.0 Hypertensive urgency; Z20.822 Contact with and (suspected) exposure to COVID-19; I10 Essential (primary) hypertension; K57.30 Diverticulosis of large intestine without perforation or abscess without bleeding; N40.0 Benign prostatic hyperplasia without lower urinary tract symptoms; K40.90 Unilateral inguinal hernia, without obstruction or gangrene, not specified as recurrent; E78.5 Hyperlipidemia, unspecified; I25.10 Atherosclerotic heart disease of native coronary artery without angina pectoris; Z86.73 Personal history of transient ischemic attack (TIA), and cerebral infarction without residual deficits
CPT/HCPCS: 36415; 71275; 74174; 80048; 80053; 80061; 83735; 84484; 85025; 85379; 85610; 85730; 87635; 93005; 93306; 93458; 96361; 96374; 99291

== ENCOUNTER 2021-02-11 06:09 | Day surgery (SDC) | payer MEDICARE ==
[2021-02-04 16:21] VITALS: BMI 34.3
[~2021-02-11 06:09] MED LIST: ALPRAZolam 0.25 MG TAB PO PRN; ALPRAZolam 0.5 MG TAB PO PRN; ASPIRIN 325 MG TAB PO STA; ATORVASTATIN 80 MG TAB PO STA; NITROGLYCERIN SL TABS 0.4 MG TAB SUBLINGUAL PRN; SODIUM CHLORIDE 0.9% 1,000 ML in EMPTY BAG 1 BAG IV SCH
[2021-02-11] MEDS ORDERED: CLOPIDOGREL 75 MG TAB ONE (06:21)
[2021-02-11 06:40] LABS: Basophils % (A) 1 %; Eosinophils # (A) 0.4 k/uL (0-0.7); Eosinophils % (A) 5 %; HCT 44.7 % (39.0-53.0); HGB 14.8 gm/dL (13.0-17.5); Lymphocytes # (A) 1.8 k/uL (1.0-4.8); Lymphocytes % (A) 24 %; MCH 30.4 pg (25.0-35.0); MCHC 33.2 g/dL (31.0-37.0); MCV 91.5 fL (80.0-100.0); Mean Platelet Volume 6.8; Monocytes # (A) 0.5 k/uL (0-1.0); Monocytes % (A) 6 %; Neutrophils # (A) 4.6 k/uL (1.3-7.7); Neutrophils % (A) 62 %; Platelet Count 299 k/uL (150-450); RBC 4.88 m/uL (4.30-5.90); RDW 12.5 % (11.5-15.5); WBC 7.5 k/uL (3.8-10.6)
[2021-02-11 06:44] VITALS: RESP 18; TEMP 98.6
[2021-02-11 07:04] LABS: Calcium 9.3 mg/dL (8.4-10.2); Potassium 4.3 mmol/L (3.5-5.1)
[2021-02-11] MEDS ORDERED: VERAPAMIL 2.5 MG/ML 2 ML AMP ONE (08:13)
[2021-02-11] MEDS ORDERED: HEPARIN SODIUM 1,000 UN/ML (10ML VL) ONE (08:13)
[2021-02-11] MEDS ORDERED: LIDOCAINE 1% INJ 10MG/ML (20 ML MDV) ONE (08:13)
[2021-02-11] MEDS ORDERED: MIDAZOLAM 2 MG/2 ML VIAL IV ONE (08:29)
[2021-02-11] MEDS ORDERED: LIDOCAINE 1% INJ 10MG/ML (20 ML MDV) SQ ONE (08:39)
[2021-02-11] MEDS ORDERED: VERAPAMIL SYRINGE (5 MG/10 ML) INTRAARTER ONE (08:41)
[2021-02-11] MEDS ORDERED: IOPAMIDOL-370 125ML BTL INJ ONE (09:02)
[2021-02-11] MEDS ORDERED: NITROGLYCERIN SL TABS 0.4 MG TAB SUBLINGUAL PRN (09:13)
[2021-02-11] MEDS ORDERED: SODIUM CHLORIDE 0.9% 1,000 ML in EMPTY BAG 1 BAG IV SCH (09:15)
--- NOTE | 2021-02-11 11:34 | CC ---
CARDIAC CATHETERIZATION REPORT CARDIAC CATHETERIZATION AND PERCUTANEOUS CORONARY INTERVENTION: DATE OF SERVICE: 02/11/2021 PERFORMING PHYSICIAN: Catrachito Prieto M.D. PROCEDURES PERFORMED: 1. Selective right and left coronary angiogram. 2. Left heart catheterization. 3. Successful stenting of the first obtuse marginal branch of the left circumflex using a 2.75 x 15 mm Xience drug-eluting stent with an excellent angiographic result and reduction of stenosis from 80% to 0%. INDICATION: This is a 70-year-old gentleman who presented a few weeks ago with acute anterior ST- elevation myocardial infarction and underwent PCI of the RCA. He was found to have intermediate to severe lesion involving the first obtuse marginal branch of the left circumflex, confirmed by reversibility on myocardial perfusion imaging stress test. APPROACH: Right radial artery. COMPLICATIONS: None. LEVEL OF SEDATION: Moderate, with sedation length of 28 minutes. PROCEDURE DESCRIPTION: After obtaining informed consent, the patient was brought to the cardiac labor arbitrator. The right radial artery was cannulated using micropuncture technique. The micropuncture wire passed easily. Then I placed a 6-Zambian sheath in the right radial artery. Subsequently I gave the patient 2 mg of verapamil IA and 10,000 units of heparin IV. I did perform selective right and left coronary angiogram. Selective right coronary angiogram was performed using JR4 diagnostic catheter and selective left coronary angiogram was performed using JL3 guiding catheter. After that I did intervene on the RCA; please see separate paragraph for that. After that I did left heart catheterization using a 5-Zambian pigtail catheter. The procedure was completed without any complication. SELECTIVE CORONARY ANGIOGRAM: 1. The right coronary artery is a large-caliber vessel. It is a dominant vessel. Proximally the RCA is angiographically normal. In the mid to distal portion the RCA is stented, and the stents are patent. The RCA distally bifurcates into PDA and PLV branches; both appeared to have mild to moderate diffuse disease. 2. The left main is a large-caliber vessel. It has a distal lesion that appeared to be in the range of 30%. It bifurcates into LCX and LAD. 3. The LCX is a large-caliber vessel. It is a nondominant vessel. The LCX proximally gives rise to a large OM branch which worked almost like ramus intermedius with disease proximally that appeared to be in the range of 80%. The distal left circumflex appeared to have mild disease only. It gives rise to a second and third OM, which are small-caliber vessels. 4. The LAD. The proximal LAD appeared to have a lesion in the range of 50% by the bifurcation of the large diagonal branch, which has a tubular lesion in the range of 60% to 70%. The mid and distal LAD appeared to have mild disease only. 5. HEMODYNAMICS: The LVEDP was about 10 to 12 mmHg without significant gradient across the aortic valve. PERCUTANEOUS CORONARY INTERVENTION OF THE OBTUSE MARGINAL: Anticoagulation was achieved using heparin, with continuous ACT monitoring throughout the procedure. After that I did engage the left main using JL3 guiding catheter. I did wire it using a run-through wire. Balloon angioplasty was achieved using a 2.5 x 12 mm balloon before I deployed a 2.75 x 15 mm Xience drug-eluting stent where the stent was positioned under fluoroscopic guidance and deployed under 18 atmospheres for 20 seconds. The following angiogram showed excellent angiographic results and the procedure was completed without any complication. CONCLUSION: 1. Patent stents in the mid and distal right coronary artery. 2. Severe disease involving the first obtuse marginal branch of the left circumflex. I performed successful stenting of OM1 with an excellent angiographic result. 3. Intermediate disease involving the mid LAD by the bifurcation of a large diagonal branch. 4. Normal left-sided filling pressure. POST-PROCEDURE MANAGEMENT: 1. Dual anti-platelet therapy. 2. Aggressive cholesterol control. 3. Follow up with the patient. MMODL / IJN: [id number] /
[2021-02-11 13:02] VITALS: BP 147/76; PULSE 57
[2021-02-11] MEDS ORDERED: METOPROLOL TARTRATE 25 MG TAB PO SCH (21:00)
[2021-02-11] MEDS ORDERED: ATORVASTATIN 80 MG TAB PO SCH (21:00)
[2021-02-12] MEDS ORDERED: LOSARTAN 50 MG TAB PO SCH (09:00)
[2021-02-12] MEDS ORDERED: ASPIRIN 81 MG PO SCH (09:00)
[2021-02-12] MEDS ORDERED: CLOPIDOGREL 75 MG TAB PO SCH (09:00)
== END 2021-02-11 14:10 | disposition home or self-care (01) ==
LOC: CATHCVL 06:09
PROVIDERS: ATTEND Internal Medicine Interventional Cardiology
DX: I25.10 Atherosclerotic heart disease of native coronary artery without angina pectoris (principal); I25.2 Old myocardial infarction; I10 Essential (primary) hypertension; E78.5 Hyperlipidemia, unspecified; R94.39 Abnormal result of other cardiovascular function study; Z20.822 Contact with and (suspected) exposure to COVID-19; Z95.5 Presence of coronary angioplasty implant and graft; Z79.82 Long term (current) use of aspirin; Z79.899 Other long term (current) drug therapy; Z79.02 Long term (current) use of antithrombotics/antiplatelets
CPT/HCPCS: 93458; 80048; 85025; 87635; C9600; C1769 ×2; C1887 ×2; C1894; C1725; C1874; J2250; J2001; J1644; Q9967

== ENCOUNTER → 2022-10-07 | Outpatient (CLI) | payer MEDICARE ==
[2022-10-07 19:44] LABS: BUN/Creat Ratio 16.67 Ratio (12.00-20.00); Calcium 9.1 mg/dL (8.7-10.3); Carbon Dioxide 24.6 mmol/L (21.6-31.8); Chloride 109 mmol/L (96-109); Glucose 101 mg/dL (70-110); Potassium 4.1 mmol/L (3.5-5.5); Sodium 143 mmol/L (135-145)
[2022-10-07 20:55] LABS: Appearance,Urine Clear (Clear); Bilirubin,Urine Negative (Negative); Blood,Urine Negative (Negative); Color,Urine Yellow (Yellow); Ketones,Urine Negative (Negative); Nitrite,Urine Negative (Negative); Specific Gravity,Urine 1.016 (1.001-1.030); Urobilinogen,Urine 0.2 E.U./DL
[2022-10-07 22:56] LABS: Basophils # (A) 0.04 X 10*3/uL (0.00-0.10); Basophils % (A) 0.6 %; Eosinophils % (A) 2.8 %; HCT 41.3 % (39.6-50.0); HGB 13.4 d/dL (13.0-17.0); Lymphocytes # (A) 2.26 X 10*3/uL (0.90-5.00); Lymphocytes % (A) 31.8 %; MCH 29.6 pg (27.0-32.0); MCHC 32.4 d/dL (32.0-37.0); MCV 91.4 FL (80.0-97.0); Mean Platelet Volume 9.9 FL (9.5-12.2); Monocytes # (A) 0.62 X 10*3/uL (0.20-1.00); Monocytes % (A) 8.7 %; NRBC Per 100 WBC 0 X 10*3/uL (0.00-0.01); Neutrophils # (A) 3.98 X 10*3/uL (1.80-7.70); Platelet Count 331 X 10*3/uL (140-440); RBC 4.52 X 10*6/uL (4.40-5.60); RDW 12.7 % (11.5-14.5); WBC 7.11 X 10*3/uL (4.50-10.00)
== END | disposition home or self-care (01) ==
LOC: LABPAT 15:29
PROVIDERS: ATTEND Urology
DX: Z01.812 Encounter for preprocedural laboratory examination (principal); C61 Malignant neoplasm of prostate; R35.0 Frequency of micturition
CPT/HCPCS: 80048; 81003; 85025; 87086

== ENCOUNTER → 2022-10-08 | Outpatient (CLI) | payer MEDICARE ==
--- NOTE | 2022-10-10 06:55 | PE ---
EXAMINATION TYPE: PET CT fusion skull to thigh DATE OF EXAM: 10/08/2022 CLINICAL INDICATION:Male, 71 years old with history of C61 Prostate CA; TECHNIQUE: Following the intravenous administration of 4.3 mCi of Ga-68 Illuccix (PSMA), whole body images are performed from the skull base to the midthigh. Images are reviewed on the computer in the coronal, axial, and sagittal planes. Reconstructed rotating images are created on [employer] and reviewed on the computer. A non-contrast CT is performed in conjunction with the PET sca n. CT DLP: 1104 mGycm, Automated exposure control for dose reduction was used. COMPARISON: CT 09/03/2022 12/04/2020, PET/CT None, bone scan 09/03/2022 FINDINGS: Mediastinal SUV mean is 2.1. Hepatic parenchyma SUV mean is 6.2. SKULL BASE AND NECK: No suspicious radiotracer activity. Misregistration artifact projecting over fa ce. CHEST, MEDIASTINUM, AND HILAR REGION: No suspicious radiotracer activity. ABDOMEN AND PELVIS: * Focus of radiotracer uptake in the right posterior prostate gland axis SUV 10.3. * More ill-defined uptake seen within the left central gland max SUV 6.0. * No lymphadenopathy with increased radiotracer activity identified. MUSCULOSKELETAL STRUCTURES: No suspicious radiotracer activity. Areas on prior CT abdomen 09/03/2022 d o not definitively have uptake on this exam. These are all subcentimeter foci of sclerotic bone. Thes e were present on 12/04/[address] CT: Atherosclerosis of the arterial vasculature including the coronary arteries. Scattered colo eduardo diverticula. Prostate gland is enlarged. IMPRESSION: 1. Focal uptake within the right posterior peripheral zone of the prostate gland compatible with enid mauricio prostatic adenocarcinoma. No definitive evidence for metastatic disease at this time. 2. Sclerotic foci present on prior CT are also present on exam on 12/04/2020 and are stable. These a re favored represent bone islands given lack of radiotracer uptake.
== END | disposition home or self-care (01) ==
LOC: RADPETMAIN 13:30
PROVIDERS: ATTEND Urology
DX: C61 Malignant neoplasm of prostate (principal)
CPT/HCPCS: 78815; A9596

== ENCOUNTER 2022-10-14 05:35 | Day surgery (SDC) | payer MEDICARE ==
[~2022-10-14 05:35] MED LIST changes: -ALPRAZolam 0.25 MG TAB PO PRN; -ALPRAZolam 0.5 MG TAB PO PRN; -ASPIRIN 325 MG TAB PO STA; -ATORVASTATIN 80 MG TAB PO STA; +HEPARIN SODIUM,PORCINE/PF 5,000 UNIT/0.5 ML SYRINGE SQ PRN; -NITROGLYCERIN SL TABS 0.4 MG TAB SUBLINGUAL PRN; -SODIUM CHLORIDE 0.9% 1,000 ML in EMPTY BAG 1 BAG IV SCH
[2022-10-14] MEDS ORDERED: ONDANSETRON 4 MG/2 ML VIAL IVP ONE (05:36)
[2022-10-14] MEDS ORDERED: DEXAMETHASONE SOD PHOSPHATE 4 MG/ML 1 ML VIAL IV ONE (05:36)
[2022-10-14] MEDS ORDERED: LACTATED RINGERS 1,000 ML IV ONE ×4 (06:24→11:41)
[2022-10-14] MEDS ORDERED: MIDAZOLAM 2 MG/2 ML VIAL IVP ONE (06:43)
[2022-10-14] MEDS ORDERED: fentaNYL (PF) 50 MCG/ML 2 ML AMP IVP ONE (06:43)
[2022-10-14] MEDS ORDERED: MIDAZOLAM 2 MG/2 ML VIAL IV PRN (07:00)
[2022-10-14] MEDS ORDERED: HYDROmorphone 0.5 MG/0.5 ML SYRINGE IVP PRN (07:00)
[2022-10-14] MEDS ORDERED: HYDROmorphone (PF) 1 MG/ML ONE (07:10)
[2022-10-14] MEDS ORDERED: SUCCINYLCHOLINE CHLORIDE 200 MG/10 ML VIAL IV ONE (07:10)
[2022-10-14] MEDS ORDERED: LIDOCAINE 2% INJ 20 MG/ML (2 ML VIAL) ONE (07:10)
[2022-10-14] MEDS ORDERED: NEOSTIGMINE 1 MG/ML 10 ML VIAL ONE (07:10)
[2022-10-14] MEDS ORDERED: SODIUM CHLORIDE 0.9% (PF) 10 ML VIAL ONE (07:10)
[2022-10-14] MEDS ORDERED: ePHEDrine 50 MG/ML 1 ML VIAL ONE (07:10)
[2022-10-14] MEDS ORDERED: PROPOFOL 10 MG/ML 20 ML VIAL IV ONE (07:10)
[2022-10-14] MEDS ORDERED: MIDAZOLAM 2 MG/2 ML VIAL ONE (07:10)
[2022-10-14] MEDS ORDERED: GLYCOPYRROLATE 0.2 MG/ML 2 ML VIAL ONE (07:10)
[2022-10-14] MEDS ORDERED: ROCURONIUM 10 MG/ML (5 ML VIAL) IV ONE (07:10)
[2022-10-14] MEDS ORDERED: ROPIVACAINE 5 MG/ML 30 ML VIAL ONE (07:10)
[2022-10-14] MEDS ORDERED: fentaNYL (PF) 50 MCG/ML 2 ML AMP ONE (07:10)
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
[2022-10-14] MEDS ORDERED: NITROGLYCERIN SL TABS 0.4 MG TAB SUBLINGUAL PRN (07:23)
[2022-10-14] MEDS ORDERED: BUPIVACAINE (PF) 0.25% 30 ML VIAL SQ ONE ×2 (08:00)
--- NOTE | 2022-10-14 10:54 | P.OP ---
Date of Procedure: 10/14/22 Preoperative Diagnosis: Prostate cancer Postoperative Diagnosis: Same Procedure(s) Performed: Robotic radical prostatectomy with bilateral pelvic lymph node dissection Implants: none Anesthesia: MARGAUXA Surgeon: Ihsan Holloway Estimated Blood Loss (ml): 150 Pathology: other (Prostate, bilateral seminal vesicle, bilateral pelvic lymph node) Condition: stable Disposition: PACU Indications for Procedure: This is a 71-year-old male with history of [place] 8 prostate cancer. Option of robotic prostatectomy versus external beam radiation therapy was discussed with him the details. Risk and benefit of each approach were discussed. He agreed to proceed with a robotic radical prostatectomy with pelvic lymph node dissection. Aware of the risk which includes but not limited to bleeding, infection, urinary incontinence, erectile dysfunction, injury to nearby organs which includes but not limited to the bladder, rectum and bowel. Risk of anesthesia was also discussed. Aware of the need for postoperative surveillance and potential of needing additional treatment and the risk of cancer recurrence. He understood all the risk and agreed to proceed Description of Procedure: After preoperative antibiotics were started, the patient was taken to the operating room. Anesthesia was induced and the patient was placed in a supine position, with adequate padding of the pressure points, shoulders, back, legs and arms. He was then prepped and draped in the standard fashion. A critical pause was performed using two patient identifiers. A 16F meehan catheter was placed to gravity drainage. A pneumo-peritoneum was created with placement of a Veress needle to 20 mm Hg without complication, and a 8 Fr trocar was placed above the umbillicus. Under direct vision a 8mm robotic ports was placed lateral to each rectus slightly below the camera port. The left iliac fossa 8mm port was placed. The right cafe assistant right iliac fossa 12mm port and right paramedian 5mm portwere placed. After the patient was placed in the trendelenberg position, the robot was then docked to the 8mm robotic ports and then each robotic arm and tower was checked in relation to the patient's legs and hands to avoid inadvertent compression. The peritoneal cavity was inspected. An inverted U-shaped incision began laterally to the left medial umbilical ligament and extended high across the midline to the right umbilical ligament. The limbs of the "U" extended to the level of the vasa on both sides. We next developed the preperitoneal space and the space of Retzius. Cautery was used to dissected the bladder away from the prostate. After the anterior bladder neck was incised and the bladder entered the the posterior bladder neck was exposed and the ureteral orifces identified. The posterior bladder neck was then incised and dissected away from the prostate. The vas and the seminal vesicles were now exposed and dissected to their insertions into the prostate and were not spared. The posterior layer of the Denonvillier's fascia was incised to enter peggy the plane between prostate and perirectal fat. Each lateral pedicle was controlled with clips and cautery for hemostasis. Partial nerve preservation was performed on the left, no nerve preservation was performed on the right. Of note patient had evidence of extraprostatic tumor extension along the right apex, the tumor a butted the rectum, I was able to dissect the prostate away from the rectum sharply at the right apex. The puboprostatic ligament was incised where it inserted into the apex of the prostate and a plane between urethra and dorsal venous complex developed to expose the anterior urethral surface. The anterior wall of the urethra was transected with the cut setting a few millimeters distal to the apex of the prostate. The dorsal vein was ligated using 3-0 V lock bilateral obturator and external iliac lymph node packets were carefully dissected after careful visualization of the hypogastric artery and obturator nerve. There was careful attention paid to hemostasis with judicious use of cautery. The urethrovesical anastomosis was performed . the posterior denovillers was reapproximated using 3-0 V lock. A 6 and 6 inch 3-0 V-Lock suture was used to anastomose the urethra and bladder, starting at the 6:00 posterior position. Mucosa was secured in every stitch, to ensure a mucosa to mucosa anastomosis. The stitch was regularly cinched and the anastomosis tightened. Care was taken to not violate the ureteral orifices. The Meehan catheter was advanced, the bladder filled, and the anastomosis was tested, as described above. Anastomsis was watertight at 200 mL The periumbilical fascia was closed with 1-0-PDS suture in running fashion. All ports were closed with a subcuticular 4-0 monocryl and Dermabond. Sponge, instrument, and needle counts were correct at the end of the case x2. All specimens including prostate and lymph nodes were sent to pathology for diagnosis and will be available in a week. The patient tolerated the surgery well and without complication. He awoke without difficulty and was taken to the recovery room in stable condition
[2022-10-14] MEDS ORDERED: HYDROmorphone 1 MG/ML 1 ML SYRINGE IVP PRN (10:55)
[2022-10-14] MEDS ORDERED: ONDANSETRON 4 MG/2 ML VIAL IVP PRN (10:55)
[2022-10-14] MEDS ORDERED: HYDROcodone/APAP 5-325MG 1 EACH TAB PO PRN (10:56)
--- NOTE | 2022-10-14 11:35 | P.ANPRN ---
Procedure Note - Anesthesia - Nerve Block Performed Bilateral Erector Spinae Single Time Out Performed: Yes ([id number]) Date of Procedure: 10/14/22 Procedure Start Time: 06:43 Procedure Stop Time: 06:48 Location of Patient: PreOp Indication: Acute Post-Operative Pain, Requested by Surgeon Specifically requested for management of pain by : Ihsan Holloway Sedation Type: Sedate with meaningful contact maintained Preparation: Sterile Prep Position: Prone Catheter: None Needle Types: Pajunk Needle Gauge: 21 Ultrasound used to visualize needle placement: Yes Ultrasound used to observe medication spread: Yes Injectate: 0.5% Ropivacaine (see comment for volume) (15cc + 10cc nacl pf each side) Blood Aspirated: No Pain Paresthesia on Injection Noted: No Resistance on Injection: Normal Image Stored and Saved: Yes Events: Uneventful and Well Tolerated
[2022-10-14] MEDS: D5-0.45% NACL WITH KCL 20MEQ/L 1,000 ML IV SCH ×2 (12:58→19:55)
[2022-10-14] MEDS: KETOROLAC 15 MG/ML 1 ML VIAL IVP SCH ×3 (12:58→23:20)
[2022-10-14] MEDS: LACTATED RINGERS 1,000 ML IV SCH ×2 (15:17→23:26)
[2022-10-14] MEDS: carvediloL 3.125 MG TAB PO SCH (17:12)
[2022-10-14] MEDS: HEPARIN SODIUM,PORCINE 5,000 UNIT/ML 1 ML VIAL SQ SCH ×2 (17:12→23:20)
[2022-10-14] MEDS: LOSARTAN 50 MG TAB PO SCH (20:00)
[2022-10-14] MEDS ORDERED: ATORVASTATIN 80 MG TAB PO SCH (21:00)
[2022-10-15] MEDS: D5-0.45% NACL WITH KCL 20MEQ/L 1,000 ML IV SCH (03:09)
[2022-10-15] MEDS: KETOROLAC 15 MG/ML 1 ML VIAL IVP SCH (05:25)
--- NOTE | 2022-10-15 08:15 | P.DS ---
Providers Attending physician: Ihsan Holloway MD Primary care physician: [facility] Course: The patient was admitted to the hospital 10/14/22 by for a robotic- assisted radical prostatectomy. He underwent this without difficulty. He is not having any pain. His abdomen is soft. His wound looks good. His urine is clear. He is tolerating regular diet. He has been up. The patient be discharged home in care of family regular diet limited activity. He'll go home with indwelling catheter. A follow-up with Dr. Granado 10/25/22. His condition is good. He resume his home medications. Patient Condition at Discharge: Good Plan - Discharge Summary Discharge Rx Participant: No New Discharge Prescriptions: No Action Aspirin 81 mg PO DAILY #30 tab Losartan Potassium [Cozaar] 50 mg PO BID carvediloL [Coreg] 3.125 mg PO BID Nitroglycerin Sl Tabs [Nitrostat] 0.4 mg SUBLINGUAL Q5M PRN #30 tab PRN Reason: Chest Pain Atorvastatin [Lipitor] 80 mg PO BID Discharge Medication List Aspirin 81 mg PO DAILY #30 tab 12/06/20 [Rx] Nitroglycerin Sl Tabs [Nitrostat] 0.4 mg SUBLINGUAL Q5M PRN #30 tab 12/06/20 [Rx] Losartan Potassium [Cozaar] 50 mg PO BID 02/11/21 [History] Atorvastatin [Lipitor] 80 mg PO BID 10/11/22 [History] carvediloL [Coreg] 3.125 mg PO BID 10/11/22 [History] Follow up Appointment(s)/Referral(s): Ihsan Holloway MD [STAFF PHYSICIAN] - 10/25/22 (home with meehan patient may already have a post op appt please check) Activity/Diet/Wound Care/Special Instructions: Instructed in catheter care. Home with leg and overnight bag. Tylenol or Motrin for pain. Discharge Disposition: HOME SELF-CARE
[2022-10-15] MEDS: carvediloL 3.125 MG TAB PO SCH (09:11)
[2022-10-15] MEDS: HEPARIN SODIUM,PORCINE 5,000 UNIT/ML 1 ML VIAL SQ SCH (09:11)
[2022-10-15] MEDS: LOSARTAN 50 MG TAB PO SCH (09:11)
[2022-10-15 09:54] VITALS: BP 119/71; PULSE 75; RESP 14; TEMP 98.5
== END 2022-10-15 12:22 | disposition home or self-care (01) ==
LOC: OR 05:35 → 5NMEDONC 11:23 → OR 10-15 12:22
PROVIDERS: ATTEND Urology
DX: C61 Malignant neoplasm of prostate (principal); G89.18 Other acute postprocedural pain; I10 Essential (primary) hypertension; E78.5 Hyperlipidemia, unspecified; I25.2 Old myocardial infarction; Z85.46 Personal history of malignant neoplasm of prostate; Z79.82 Long term (current) use of aspirin; Z79.899 Other long term (current) drug therapy
CPT/HCPCS: 64999; 86900; 86901; 86850; 55866; 38571; J2250; J1644 ×3; J1100; J0690; J2405; J3010; J1885 ×2; J0665; 88307; 88309

== ENCOUNTER 2022-11-10 14:51 | Emergency (ER) | payer MEDICARE ==
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
[2022-11-10 16:15] LABS: Basophils % (A) 0 %; Eosinophils # (A) 0.1 k/uL (0-0.7); Eosinophils % (A) 1 %; HCT 42.5 % (39.0-53.0); HGB 14.3 gm/dL (13.0-17.5); Lymphocytes # (A) 1.3 k/uL (1.0-4.8); Lymphocytes % (A) 12 %; MCHC 33.6 g/dL (31.0-37.0); MCV 89.5 fL (80.0-100.0); Mean Platelet Volume 7.8; Monocytes # (A) 0.7 k/uL (0-1.0); Monocytes % (A) 7 %; Neutrophils # (A) 8.3 k/uL (1.3-7.7); Neutrophils % (A) 77 %; Platelet Count 305 k/uL (150-450); RBC 4.75 m/uL (4.30-5.90); RDW 12.5 % (11.5-15.5); WBC 10.7 k/uL (3.8-10.6)
[2022-11-10 16:22] LABS: ALT 14 U/L (4-49); AST 18 U/L (17-59); African American GFR (CKD) 54 (>60 ml/min/1.73 sqM); Albumin 3.6 g/dL (3.5-5.0); Alkaline Phosphatase 91 U/L (38-126); Anion Gap 6 mmol/L; Blood Urea Nitrogen 20 mg/dL (9-20); Carbon Dioxide 30 mmol/L (22-30); Chloride 100 mmol/L (98-107); Glucose 96 mg/dL (74-99); Lipase 59 U/L (23-300); Non-African American GFR(CKD) 47 (>60 ml/min/1.73 sqM); Potassium 4.5 mmol/L (3.5-5.1); Sodium 136 mmol/L (137-145); Total Bilirubin 1.4 mg/dL (0.2-1.3); Total Protein 6.8 g/dL (6.3-8.2)
--- NOTE | 2022-11-10 21:09 | US ---
EXAMINATION TYPE: US scrotum with doppler. Grayscale and color Doppler Duplex imaging performed of shantanu diane scrotum. DATE OF EXAM: 11/10/2022 COMPARISON: NONE CLINICAL INDICATION: Male, 72 years old with history of right testicular pain; Pt states he had a pro statectomy yesterday and now today he is having groin, rt testicle, and leg pain. EXAM MEASUREMENTS: TESTICLES: Right Testicle: 4.0 x 2.8 x 2.3 cm Left Testicle: 4.2 x 3.2 x 2.0 cm EPIDIDYMIS HEAD: Right Epididymis: 0.7 cm Left Epididymis: 0.8 cm . Cystic area seen measuring 0.7 x 0.7 x 0.7cm Doppler performed to assess for testicular vascularity; good bilateral color flow and waveforms are s een. There is no evidence of testicular torsion. Presence of hydroceles: Yes bilaterally Presence of varicoceles: Yes bilaterally. Left side larger IMPRESSION: 1. Arterial and venous waveforms are seen bilaterally. There is drop-off of the diastolic arterial f low within the right testis on spectral waveforms which could be secondary to detect due to technique . 2. No evidence for intratesticular mass. 3. Bilateral varicoceles left greater than right. 4. Bilateral trace hydroceles.
--- NOTE | 2022-11-10 22:10 | CT ---
EXAMINATION TYPE: CT abdomen pelvis w con CT DLP: 1439.5 mGycm, Automated exposure control for dose reduction was used. DATE OF EXAM: 11/10/2022 9:47 PM COMPARISON: PET/CT 10/08/2022. CLINICAL INDICATION:Male, 72 years old with history of post operative pain; Recent prostate removal, swollen and sore testicles, fever and leg pain. TECHNIQUE: Axial CT of the abdomen and pelvis. Sagittal and coronal reformats were created on a [employer] workstation. Contrast used:80 ml mL of Isovue 300 with IV Contrast, (none if empty) Oral contrast used: without Oral Contrast (none if empty) FINDINGS: LOWER CHEST: Unremarkable ABDOMEN LIVER: Unremarkable GALLBLADDER AND BILE DUCTS: Unremarkable. PANCREAS: Unremarkable. SPLEEN: Unremarkable. ADRENAL GLANDS: Unremarkable. KIDNEYS AND URETERS: No evidence of hydronephrosis or renal calculus. The ureters are unremarkable. PELVIS BLADDER: Unremarkable REPRODUCTIVE: Prostate gland is been surgically removed. No evidence for organizing fluid collection. No evidence for postoperative complication. ABDOMEN & PELVIS STOMACH AND BOWEL: No evidence of bowel obstruction. Scattered colonic diverticula. The appendix is n ormal. PERITONEUM/RETROPERITONEUM: No evidence of pneumoperitoneum or free fluid. VASCULATURE: No evidence of aortic aneurysm. MUSCULOSKELETAL: No acute osseous abnormalities LYMPH NODES: No gross evidence for lymphadenopathy. SOFT TISSUE/ABDOMINAL WALL: Left fat-containing inguinal hernia. There is fat stranding changes just lateral to the right inguinal canal that represent a fat-containing right femoral hernia present best appreciated on series 201 image 92 and on coronal imaging series 202 image 48. IMPRESSION: 1. Postprostatectomy changes. No evidence for organizing fluid collection surgical bed. 2. Fat stranding changes just lateral to the right inguinal canal which could represent at right fem oral hernia.
[2022-11-10] MEDS ORDERED: SODIUM CHLORIDE 0.9% 500 ML 500 ML IV STA (22:15)
[2022-11-10 22:57] VITALS: BP 132/81; PULSE 78; RESP 18; TEMP 100.3
== END 2022-11-11 00:11 | disposition home or self-care (01) ==
LOC: EC 14:51
DX: K41.90 Unilateral femoral hernia, without obstruction or gangrene, not specified as recurrent (principal); I10 Essential (primary) hypertension; Z79.899 Other long term (current) drug therapy
CPT/HCPCS: 36415; 80053; 83605; 83690; 85025; 93975; 76870; 74177; 99284; Q9967

== ENCOUNTER 2022-11-19 15:11 | Observation (INO) | payer MEDICARE ==
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
[2022-11-19 18:44] LABS: Basophils % (A) 0 %; Eosinophils # (A) 0.2 k/uL (0-0.7); Eosinophils % (A) 3 %; HCT 41.4 % (39.0-53.0); HGB 13.7 gm/dL (13.0-17.5); Lymphocytes # (A) 2.1 k/uL (1.0-4.8); Lymphocytes % (A) 26 %; MCH 29.7 pg (25.0-35.0); MCHC 33.2 g/dL (31.0-37.0); MCV 89.5 fL (80.0-100.0); Mean Platelet Volume 7.3; Monocytes # (A) 0.5 k/uL (0-1.0); Monocytes % (A) 6 %; Neutrophils # (A) 5.2 k/uL (1.3-7.7); Neutrophils % (A) 64 %; Platelet Count 358 k/uL (150-450); RBC 4.62 m/uL (4.30-5.90); RDW 12.3 % (11.5-15.5); WBC 8.1 k/uL (3.8-10.6)
[2022-11-19 18:54] LABS: ALT 17 U/L (4-49); AST 20 U/L (17-59); African American GFR (CKD) 82 (>60 ml/min/1.73 sqM); Albumin 3.8 g/dL (3.5-5.0); Alkaline Phosphatase 104 U/L (38-126); Anion Gap 8 mmol/L; Blood Urea Nitrogen 17 mg/dL (9-20); Carbon Dioxide 27 mmol/L (22-30); Chloride 106 mmol/L (98-107); Glucose 101 mg/dL (74-99); Non-African American GFR(CKD) 71 (>60 ml/min/1.73 sqM); Potassium 4.4 mmol/L (3.5-5.1); Sodium 141 mmol/L (137-145); Total Bilirubin 0.6 mg/dL (0.2-1.3); Total Protein 6.6 g/dL (6.3-8.2)
[2022-11-19 18:57] LABS: Appearance,Urine Clear (Clear); Bacteria,Urine Rare /hpf; Bilirubin,Urine Negative (Negative); Blood,Urine Negative (Negative); Color,Urine Colorless; Glucose,Urine (UA) Negative (Negative); Ketones,Urine Negative (Negative); Leukocyte Esterase,Urine Small (Negative); Mucus,Urine Rare /hpf; Nitrite,Urine Negative (Negative); Protein,Urine Negative (Negative); RBC,Urine 1 /hpf (0-5); Specific Gravity,Urine 1.007 (1.001-1.035); Squamous Epithelial Cell,Urine <1 /hpf (0-4); Urobilinogen,Urine <2.0 mg/dL (<2.0); WBC,Urine 21 /hpf (0-5)
[2022-11-19] MEDS: CEFEPIME 2 GM in SODIUM CHLORIDE 0.9% 100 ML IVPB SCH (21:17)
[2022-11-19] MEDS ORDERED: NALOXONE 0.4 MG/ML 1 ML VIAL IV PRN (22:22)
[2022-11-20] MEDS: ACETAMINOPHEN TAB 325 MG TAB PO PRN ×2 (00:12→21:32)
[2022-11-20 06:48] LABS: Basophils % (A) 0 %; Eosinophils # (A) 0.3 k/uL (0-0.7); Eosinophils % (A) 4 %; HCT 38.4 % (39.0-53.0); HGB 12.5 gm/dL (13.0-17.5); Lymphocytes # (A) 2.3 k/uL (1.0-4.8); Lymphocytes % (A) 34 %; MCH 29.7 pg (25.0-35.0); MCHC 32.4 g/dL (31.0-37.0); MCV 91.6 fL (80.0-100.0); Mean Platelet Volume 6.9; Monocytes # (A) 0.5 k/uL (0-1.0); Monocytes % (A) 7 %; Neutrophils # (A) 3.5 k/uL (1.3-7.7); Neutrophils % (A) 52 %; Platelet Count 317 k/uL (150-450); RDW 12.4 % (11.5-15.5); WBC 6.7 k/uL (3.8-10.6)
[2022-11-20 06:54] LABS: African American GFR (CKD) 78 (>60 ml/min/1.73 sqM); Anion Gap 4 mmol/L; Blood Urea Nitrogen 19 mg/dL (9-20); Calcium 8.5 mg/dL (8.4-10.2); Carbon Dioxide 28 mmol/L (22-30); Chloride 109 mmol/L (98-107); Glucose 140 mg/dL (74-99); Non-African American GFR(CKD) 67 (>60 ml/min/1.73 sqM); Sodium 141 mmol/L (137-145)
[2022-11-20] MEDS: CEFEPIME 2 GM in SODIUM CHLORIDE 0.9% 100 ML IVPB SCH ×2 (08:28→16:59)
[2022-11-20] MEDS ORDERED: NITROGLYCERIN SL TABS 0.4 MG TAB SUBLINGUAL PRN (08:52)
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
[2022-11-20] MEDS: ASPIRIN 81 MG PO SCH (10:03)
[2022-11-20] MEDS: carvediloL 3.125 MG TAB PO SCH ×2 (10:03→16:59)
[2022-11-20] MEDS: LOSARTAN 50 MG TAB PO SCH ×2 (10:03→19:40)
[2022-11-20] MEDS: ATORVASTATIN 80 MG TAB PO SCH (19:41)
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
[2022-11-21] MEDS: CEFEPIME 2 GM in SODIUM CHLORIDE 0.9% 100 ML IVPB SCH ×3 (00:32→16:08)
[2022-11-21] MEDS: carvediloL 3.125 MG TAB PO SCH ×2 (05:52→17:51)
[2022-11-21] MEDS: LOSARTAN 50 MG TAB PO SCH ×2 (08:29→20:28)
[2022-11-21] MEDS: ASPIRIN 81 MG PO SCH (08:29)
[2022-11-21 10:08] LABS: HCT 39.4 % (39.6-50.0); HGB 12.6 d/dL (13.0-17.0); MCH 29.2 pg (27.0-32.0); MCV 91.4 FL (80.0-97.0); Mean Platelet Volume 9.6 FL (9.5-12.2); NRBC Per 100 WBC 0 X 10*3/uL (0.00-0.01); Platelet Count 318 X 10*3/uL (140-440); RBC 4.31 X 10*6/uL (4.40-5.60); RDW 12.3 % (11.5-14.5); WBC 7.08 X 10*3/uL (4.50-10.00)
[2022-11-21 10:20] LABS: BUN/Creat Ratio 14.69 Ratio (12.00-20.00); Blood Urea Nitrogen 19.1 mg/dL (9.0-27.0); Calcium 8.9 mg/dL (8.7-10.3); Carbon Dioxide 25.2 mmol/L (21.6-31.8); Chloride 108 mmol/L (96-109); Glucose 97 mg/dL (70-110); Potassium 4.4 mmol/L (3.5-5.5); Sodium 142 mmol/L (135-145)
--- NOTE | 2022-11-21 13:17 | P.PN ---
Subjective Progress Note Date: 11/21/22 * 72-year-old gentleman with past medical history significant for dyslipidemia, hypertension who had a recent radical prostatectomy with biopsy showing adenocarcinoma presents to the emergency department with complains of dysuria. Patient has been following up with urology outpatient and has been having i ncreased frequency and urination issues. Patient followed up with primary care physician who prescribed ciprofloxacin which was started on 11/18/22. Outpatient urine cultures were collected however patient was asked to come to the emergency for IV antibiotics due to concern for multi drug resistant organism. * Workup initiated at time of presentation in ER included hematology which showed normal WBC count normal hemoglobin and normal platelet count. Serum chemistry was obtained which showed essentially normal electrolyte panel normal renal function lactate was within normal limits as well * Patient was started on IV cefepime with consultations from infectious disease * Patient seen and evaluated bedside. Patient states dysuria has improved. We'll follow up on final cultures. Serum chemistry and hematology shows no leukocytosis normal electrolyte panel Objective - Vital Signs Vital signs: Vital Signs Temp 97.6 F 11/21/22 08:00 Pulse 56 L 11/21/22 08:00 Resp 18 11/21/22 08:00 BP 116/66 11/21/22 08:00 Pulse Ox 94 L 11/21/22 08:00 FiO2 Intake & Output 11/20/22 11/21/22 11/21/22 18:59 06:59 18:59 Intake Total 180 Balance 180 Intake: Oral 180 Other: Voiding Method Toilet Toilet Toilet Diaper Diaper Diaper # Voids 1 3 - Exam PHYSICAL EXAMINATION: GENERAL: The patient is alert and oriented x3, not in any acute distress. Well developed, well nourished. HEENT: Pupils are round and equally reacting to light. EOMI. CARDIOVASCULAR: S1 and S2 present. No murmurs, rubs, or gallops. PULMONARY: Chest is clear to auscultation, no wheezing or crackles. ABDOMEN: Soft, nontender, nondistended, normoactive bowel sounds. No palpable organomegaly. MUSCULOSKELETAL: No joint swelling or deformity. EXTREMITIES: No cyanosis, clubbing, or pedal edema. NEUROLOGICAL: Gross neurological examination did not reveal any focal deficits. SKIN: No rashes. - Labs CBC & Chem 7: 11/21/22 05:42 11/21/22 05:42 Labs: Abnormal Lab Results - Last 24 Hours (Table) 11/21/22 11/21/22 Range/Units 05:42 05:42 RBC 4.31 L (4.40-5.60) X 10*6/uL Hgb 12.6 L (13.0-17.0) d/dL Hct 39.4 L (39.6-50.0) % Est GFR (CKD-EPI) 59 L (>=60) Assessment and Plan Assessment: Assessment and plan * Urinary tract infection status post radical prostatectomy * History of adenocarcinoma of prostate * Coronary artery disease history of PCI on left circumflex 2020 * Hypertension * Hyperlipidemia * Patient had outpatient scrotal ultrasound and CT abdomen and pelvis completed on 11/10/22, post prostatectomy changes were noted no fluid collection or abscess was noted * Patient was started on IV cefepime, urine cultures ordered, infectious disease consulted * In regards to history of hypertension continue patient on Coreg, continue Cozaar * In regards to history of coronary artery disease continue current medical management including aspirin and Lipitor * CODE STATUS is full code
--- NOTE | 2022-11-21 13:51 | P.PN ---
Subjective Progress Note Date: 11/21/22 Principal diagnosis: Drug resistant UTI Patient is a 72-year-old male with a past medical history significant for hypertension in this patient who recently did have a prostatectomy done on 10/14/2022 and the patient mention that his Zaragoza catheter was discontinued on 10/25/2022 patient seem to have a problem with burning of urine some hematuria deep pelvic and flank pain, patient apparently did have an outpatient UA and culture that was resistant to Cipro that the patient is on and the patient has been sent to the hospital for IV antibiotic therapy. On today's evaluation that is11/21/2022, the patient continues to be afebrile, the patient is breathing comfortably on room air, the patient denies chest pain or cough, patient denies abdominal pain and no nausea/vomiting /diarrhea Patient white count is 7.08, creatinine is 1.3, cultures here are pending Objective - Vital Signs Vital signs: Vital Signs Temp 97.6 F 11/21/22 08:00 Pulse 56 L 11/21/22 08:00 Resp 18 11/21/22 08:00 BP 116/66 11/21/22 08:00 Pulse Ox 94 L 11/21/22 08:00 FiO2 Intake & Output 11/20/22 11/21/22 11/21/22 18:59 06:59 18:59 Intake Total 180 Balance 180 Intake: Oral 180 Other: Voiding Method Toilet Toilet Toilet Diaper Diaper Diaper # Voids 1 3 - Exam GENERAL DESCRIPTION: An elderly male lying in bed in no distress RESPIRATORY SYSTEM: Unlabored breathing , decreased breath sounds at bases HEART: S1 S2 regular rate and rhythm , ABDOMEN: Soft , no tenderness EXTREMITIES: No edema feet - Labs CBC & Chem 7: 11/21/22 05:42 11/21/22 05:42 Labs: Abnormal Lab Results - Last 24 Hours (Table) 11/21/22 11/21/22 Range/Units 05:42 05:42 RBC 4.31 L (4.40-5.60) X 10*6/uL Hgb 12.6 L (13.0-17.0) d/dL Hct 39.4 L (39.6-50.0) % Est GFR (CKD-EPI) 59 L (>=60) Assessment and Plan (1) UTI (urinary tract infection) Current Visit: Yes Status: Acute Code(s): N39.0 - URINARY TRACT INFECTION, SITE NOT SPECIFIED SNOMED Code(s): 86244232 Plan: 1patient with a urinary symptoms of burning deep pelvic pain in this patient symptom has been going on for he did have a prostatectomy on 10/14/2022 followed by removal of the Zaragoza catheter on 10/25/2022 patient was evaluated in the ER on 11/10/2022 was evidence of any prostate bed abscess, apparently the patient did have a urine culture done in the outpatient setting which did grow resistant pathogen currently I do not have access to that urine culture as it was not through [facility] 2-we will try to obtain the urine culture results from his PCP in the a.m. 3Patient to continue with the cefepime 2 g every 8 hours in view of clinical improvement Dictation was produced using [employer] dictation software. please excuse any grammatical, word or spelling errors. Time with Patient: Less than 30
[2022-11-21] MEDS: ATORVASTATIN 80 MG TAB PO SCH (20:28)
[2022-11-21] MEDS: ACETAMINOPHEN TAB 325 MG TAB PO PRN (21:53)
[2022-11-22] MEDS: CEFEPIME 2 GM in SODIUM CHLORIDE 0.9% 100 ML IVPB SCH ×2 (00:45→07:56)
[2022-11-22] MEDS: carvediloL 3.125 MG TAB PO SCH ×2 (05:48→17:20)
[2022-11-22] MEDS: ASPIRIN 81 MG PO SCH (07:57)
[2022-11-22] MEDS: LOSARTAN 50 MG TAB PO SCH ×2 (07:57→19:59)
[2022-11-22] MEDS: ERTAPENEM 1 GM in SODIUM CHLORIDE 0.9% 50 ML IVPB SCH (14:12)
--- NOTE | 2022-11-22 15:08 | P.PN ---
Progress Note - Text Progress Note Date: 11/22/22 Hospital course: 72-year-old gentleman with past medical history significant for dyslipidemia, hy pertension who had a recent radical prostatectomy with biopsy showing adenocarcinoma presents to the emergency department with complains of dysuria. Patient has been following up with urology outpatient and has been having increased frequency and urination issues. Patient followed up with primary care physician who prescribed ciprofloxacin which was started on 11/18/22. Outpatient urine cultures were collected however patient was asked to come to the emergency for IV antibiotics due to concern for multi drug resistant organism. * Workup initiated at time of presentation in ER included hematology which showed normal WBC count normal hemoglobin and normal platelet count. Serum chemistry was obtained which showed essentially normal electrolyte panel normal renal function lactate was within normal limits as well * Patient was started on IV cefepime with consultations from infectious disease * Patient seen and evaluated bedside. Patient states dysuria has improved. We'll follow up on final cultures. Serum chemistry and hematology shows no leukocytosis normal electrolyte panel November 22: I assumed care of the patient today. Laying in bed. Comforter. Some deep pelvis discomfort with slight dysuria. Eating good. Had a bowel movement. Had a fever like sensation this morning. Urology Dr. vargas consulted. Active Medications Acetaminophen (Acetaminophen Tab 325 Mg Tab) 650 mg PO Q6HR PRN PRN Reason: Mild Pain or Fever > 100.5 Last Admin: 11/21/22 21:53 Dose: 650 mg Aspirin (Aspirin 81 Mg) 81 mg PO DAILY [facility] Last Admin: 11/22/22 07:57 Dose: 81 mg Atorvastatin Calcium (Atorvastatin 80 Mg Tab) 80 mg PO HS [facility] Last Admin: 11/21/22 20:28 Dose: 80 mg Carvedilol (Carvedilol 3.125 Mg Tab) 3.125 mg PO BID-W/MEALS [facility] Last Admin: 11/22/22 05:48 Dose: 3.125 mg Ertapenem 1 gm/ Sodium (Chloride) 50 mls @ 100 mls/hr IVPB DAILY [facility]; Protocol Last Admin: 11/22/22 14:12 Dose: 100 mls/hr Losartan Potassium (Losartan 50 Mg Tab) 50 mg PO BID [facility] Last Admin: 11/22/22 07:57 Dose: 50 mg Naloxone HCl (Naloxone 0.4 Mg/Ml 1 Ml Vial) 0.2 mg IV Q2M PRN PRN Reason: Opioid Reversal Nitroglycerin (Nitroglycerin Sl Tabs 0.4 Mg Tab) 0.4 mg SUBLINGUAL Q5M PRN PRN Reason: Chest Pain On examination: VITAL SIGNS: [97.7, 57, 16, 120/78, 96% room air] GENERAL APPEARANCE: Laying in bed, comfortable HEENT: Normal external appearance of nose and ear. Oral cavity normal EYES: Pupils equal. Conjunctiva normal. NECK: JVD not raised. Mass not palpable. RESPIRATORY: Respiratory effort normal. Lungs clear to auscultation. CARDIOVASCULAR: First and second sounds normal. No edema. ABDOMEN: Soft. Liver and spleen not palpable. No tenderness. No mass palpable. PSYCHIATRY: Alert and oriented x3. Mood and affect normal. INVESTIGATIONS, reviewed in the clinical context: 11/21/2022: White count 7.0 hemoglobin 12.6 platelets 318 sodium 142 potassium 4.4 creatinine 1.3 Urine culture [November 19]: E. coli/ESBL Assessment and plan * Acute Urinary tract infection status post radical prostatectomy * adenocarcinoma of prostate-followed by Dr. vargas * Coronary artery disease history of PCI on left circumflex 2020-aspirin Lipitor Coreg * Essential Hypertension-Coreg Cozaar * Hyperlipidemia-Lipitor -Full code * Discussed with patient. Urology consulted. Continue IV ertapenem.
--- NOTE | 2022-11-22 17:09 | P.PN ---
Subjective Progress Note Date: 11/22/22 Principal diagnosis: Drug resistant UTI Patient is a 72-year-old male with a past medical history significant for hypertension in this patient who recently did have a prostatectomy done on 10/14/2022 and the patient mention that his Zaragoza catheter was discontinued on 10/25/2022 patient seem to have a problem with burning of urine some hematuria deep pelvic and flank pain, patient apparently did have an outpatient UA and culture that was resistant to Cipro that the patient is on and the patient has been sent to the hospital for IV antibiotic therapy. On today's evaluation that is 11/22/2022, the patient denies any fever or any chills, the patient is breathing comfortably on room air and no need for supplemental oxygen, patient denies abdominal pain and no nausea/vomiting /diarrhea,the patient denies chest pain or cough, patient started coming of some burning of urine Patient urine culture had been finalized with ESBL E. coli Objective - Vital Signs Vital signs: Vital Signs Temp 97.7 F 11/22/22 07:41 Pulse 57 L 11/22/22 07:41 Resp 16 11/22/22 07:41 BP 128/78 11/22/22 07:41 Pulse Ox 96 11/22/22 07:41 FiO2 Intake & Output 11/21/22 11/22/22 11/22/22 18:59 06:59 18:59 Intake Total 240 118 Balance 240 118 Intake: Oral 240 118 Other: Voiding Method Toilet Toilet Toilet Diaper Diaper Diaper # Voids 1 - Exam GENERAL DESCRIPTION: An elderly male lying in bed in no distress RESPIRATORY SYSTEM: Unlabored breathing , decreased breath sounds at bases HEART: S1 S2 regular rate and rhythm , ABDOMEN: Soft , no tenderness EXTREMITIES: No edema feet - Labs CBC & Chem 7: 11/21/22 05:42 11/21/22 05:42 Labs: Microbiology - Last 24 Hours (Table) 11/19/22 18:37 Urine Culture - Preliminary Urine,Voided Gram Neg Bacilli Assessment and Plan (1) UTI (urinary tract infection) Current Visit: Yes Status: Acute Code(s): N39.0 - URINARY TRACT INFECTION, SITE NOT SPECIFIED SNOMED Code(s): 20008171 Plan: 1patient with a urinary symptoms of burning deep pelvic pain in this patient symptom has been going on for he did have a prostatectomy on 10/14/2022 followed by removal of the Zaragoza catheter on 10/25/2022 patient was evaluated in the ER on 11/10/2022 was evidence of any prostate bed abscess, apparently the patient did have a urine culture done in the outpatient setting which did grow resistant pathogen currently I do not have access to that urine culture as it was not through [facility] 2-urine culture from PCP office to see if this morning did grew ESBL E. coli and the patient urine culture done here also grew ESBL E. coli 3we will discontinue cefepime start the patient on Invanz may need short course of IV antibiotic on discharge Dictation was produced using [employer] dictation software. please excuse any grammatical, word or spelling errors. Time with Patient: Less than 30
[2022-11-22] MEDS: ATORVASTATIN 80 MG TAB PO SCH (19:59)
[2022-11-23] MEDS: carvediloL 3.125 MG TAB PO SCH ×2 (05:32→18:17)
[2022-11-23] MEDS: LOSARTAN 50 MG TAB PO SCH ×2 (08:44→19:32)
[2022-11-23] MEDS: ASPIRIN 81 MG PO SCH (08:44)
[2022-11-23] MEDS: ERTAPENEM 1 GM in SODIUM CHLORIDE 0.9% 50 ML IVPB SCH (08:44)
[2022-11-23] MEDS: SODIUM CHLORIDE 0.45% 1,000 ML IV SCH ×2 (12:21→20:42)
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
--- NOTE | 2022-11-23 15:14 | P.PN ---
Subjective Progress Note Date: 11/23/22 Principal diagnosis: Drug resistant UTI Patient is a 72-year-old male with a past medical history significant for hypertension in this patient who recently did have a prostatectomy done on 10/14/2022 and the patient mention that his Zaragoza catheter was discontinued on 10/25/2022 patient seem to have a problem with burning of urine some hematuria deep pelvic and flank pain, patient apparently did have an outpatient UA and culture that was resistant to Cipro that the patient is on and the patient has been sent to the hospital for IV antibiotic therapy. On today's evaluation that is 11/23/2022, the patient remains to be afebrile the patient is breathing comfortably on room air, the patient denies having any chest pain shortness of breath or cough, patient denies abdominal pain and no nausea/vomiting /diarrhea, patient is feeling better and urinary symptoms has im proved Patient did have a white count of 7.08, creatinine is 1.3 , urine culture had been finalized with ESBL E. coli Objective - Vital Signs Vital signs: Vital Signs Temp 97.9 F 11/23/22 07:56 Pulse 74 11/23/22 08:25 Resp 18 11/23/22 08:25 BP 133/76 11/23/22 07:56 Pulse Ox 96 11/23/22 07:56 FiO2 Intake & Output 11/22/22 11/23/22 11/23/22 18:59 06:59 18:59 Intake Total 354 240 Balance 354 240 Intake: Oral 354 240 Other: Voiding Method Toilet Toilet Toilet Diaper Diaper # Voids 2 2 - Exam GENERAL DESCRIPTION: An elderly male lying in bed in no distress RESPIRATORY SYSTEM: Unlabored breathing , decreased breath sounds at bases HEART: S1 S2 regular rate and rhythm , ABDOMEN: Soft , no tenderness EXTREMITIES: No edema feet - Labs CBC & Chem 7: 11/21/22 05:42 11/21/22 05:42 Labs: Microbiology - Last 24 Hours (Table) 11/19/22 18:37 Urine Culture - Final Urine,Voided Escherichia coli Assessment and Plan (1) UTI (urinary tract infection) Current Visit: Yes Status: Acute Code(s): N39.0 - URINARY TRACT INFECTION, SITE NOT SPECIFIED SNOMED Code(s): 86792247 Plan: 1patient with a urinary symptoms of burning deep pelvic pain in this patient symptom has been going on for he did have a prostatectomy on 10/14/2022 followed by removal of the Zaragoza catheter on 10/25/2022 patient was evaluated in the ER on 11/10/2022 was evidence of any prostate bed abscess, apparently the patient did have a urine culture done in the outpatient setting which did grow resistant pathogen currently I do not have access to that urine culture as it was not through [facility] 2-urine culture from PCP office did grew ESBL E. coli and the patient urine culture done here also grew ESBL E. coli 3patient is behaving more of a cystitis he will continue with Invanz to finish a 3 day course of therapy Dictation was produced using [employer] dictation software. please excuse any grammatical, word or spelling errors. Time with Patient: Less than 30
[2022-11-23 16:23] LABS: Appearance,Urine Clear (Clear); Bacteria,Urine Rare /hpf; Bilirubin,Urine Negative (Negative); Blood,Urine Negative (Negative); Color,Urine Light Yellow; Glucose,Urine (UA) Negative (Negative); Ketones,Urine Negative (Negative); Leukocyte Esterase,Urine Trace (Negative); Mucus,Urine Occasional /hpf; Nitrite,Urine Negative (Negative); PH, Urine 5.5 (5.0-8.0); Protein,Urine Trace (Negative); RBC,Urine <1 /hpf (0-5); Specific Gravity,Urine 1.014 (1.001-1.035); Urobilinogen,Urine <2.0 mg/dL (<2.0); WBC,Urine 2 /hpf (0-5)
[2022-11-23] MEDS: ATORVASTATIN 80 MG TAB PO SCH (19:32)
--- NOTE | 2022-11-23 19:57 | P.PN ---
Progress Note - Text Progress Note Date: 11/23/22 Hospital course: 72-year-old gentleman with past medical history significant for dyslipidemia, h ypertension who had a recent radical prostatectomy with biopsy showing adenocarcinoma presents to the emergency department with complains of dysuria. Patient has been following up with urology outpatient and has been having increased frequency and urination issues. Patient followed up with primary care physician who prescribed ciprofloxacin which was started on 11/18/22. Outpatient urine cultures were collected however patient was asked to come to the emergency for IV antibiotics due to concern for multi drug resistant organism. * Workup initiated at time of presentation in ER included hematology which showed normal WBC count normal hemoglobin and normal platelet count. Serum chemistry was obtained which showed essentially normal electrolyte panel normal renal function lactate was within normal limits as well * Patient was started on IV cefepime with consultations from infectious disease * Patient seen and evaluated bedside. Patient states dysuria has improved. We'll follow up on final cultures. Serum chemistry and hematology shows no leukocytosis normal electrolyte panel November 22: I assumed care of the patient today. Laying in bed. Comforter. Some deep pelvis discomfort with slight dysuria. Eating good. Had a bowel movement. Had a fever like sensation this morning. Urology Dr. vargas consulted. November 23: Up to the bathroom. Mild pelvic discomfort. Oral intake good. Remains on IV ertapenem.- Active Medications Acetaminophen (Acetaminophen Tab 325 Mg Tab) 650 mg PO Q6HR PRN PRN Reason: Mild Pain or Fever > 100.5 Last Admin: 11/21/22 21:53 Dose: 650 mg Aspirin (Aspirin 81 Mg) 81 mg PO DAILY [facility] Last Admin: 11/23/22 08:44 Dose: 81 mg Atorvastatin Calcium (Atorvastatin 80 Mg Tab) 80 mg PO HS [facility] Last Admin: 11/23/22 19:32 Dose: 80 mg Carvedilol (Carvedilol 3.125 Mg Tab) 3.125 mg PO BID-W/MEALS [facility] Last Admin: 11/23/22 18:17 Dose: 3.125 mg Ertapenem 1 gm/ Sodium (Chloride) 50 mls @ 100 mls/hr IVPB DAILY [facility]; Protocol Last Admin: 11/23/22 08:44 Dose: 100 mls/hr Sodium Chloride (Saline 0.45%) 1,000 mls @ 100 mls/hr IV .Q10H [facility] Last Admin: 11/23/22 12:21 Dose: 100 mls/hr Losartan Potassium (Losartan 50 Mg Tab) 50 mg PO BID [facility] Last Admin: 11/23/22 19:32 Dose: 50 mg Naloxone HCl (Naloxone 0.4 Mg/Ml 1 Ml Vial) 0.2 mg IV Q2M PRN PRN Reason: Opioid Reversal Nitroglycerin (Nitroglycerin Sl Tabs 0.4 Mg Tab) 0.4 mg SUBLINGUAL Q5M PRN PRN Reason: Chest Pain On examination: VITAL SIGNS: 97.8, 59, 18, 140 with 75, 94% room air GENERAL APPEARANCE: Sitting at the edge of the bed comfortable HEENT: Normal external appearance of nose and ear. Oral cavity normal EYES: Pupils equal. Conjunctiva normal. NECK: JVD not raised. Mass not palpable. RESPIRATORY: Respiratory effort normal. Lungs clear to auscultation. CARDIOVASCULAR: First and second sounds normal. No edema. ABDOMEN: Soft. Liver and spleen not palpable. No tenderness. No mass palpable. PSYCHIATRY: Alert and oriented x3. Mood and affect normal. INVESTIGATIONS, reviewed in the clinical context: 11/21/2022: White count 7.0 hemoglobin 12.6 platelets 318 sodium 142 potassium 4.4 creatinine 1.3 Urine culture [November 19]: E. coli/ESBL Assessment and plan * Acute Urinary tract infection, with cystitis status post radical prostatectomy * adenocarcinoma of prostate-followed by Dr. vargas * Coronary artery disease history of PCI on left circumflex 2020-aspirin Lipitor Coreg * Essential Hypertension-Coreg Cozaar * Hyperlipidemia-Lipitor -Full code * PICC line placed. Continue IV ertapenem. Seen by urology Dr. vargas. DC antibiotics per ID.
[2022-11-24 04:01] VITALS: RESP 16
[2022-11-24] MEDS: carvediloL 3.125 MG TAB PO SCH (05:53)
[2022-11-24] MEDS: SODIUM CHLORIDE 0.45% 1,000 ML IV SCH (05:54)
[2022-11-24 07:50] VITALS: BP 116/63; PULSE 68; TEMP 98
[2022-11-24] MEDS: ERTAPENEM 1 GM in SODIUM CHLORIDE 0.9% 50 ML IVPB SCH (09:28)
[2022-11-24] MEDS: LOSARTAN 50 MG TAB PO SCH (09:28)
[2022-11-24] MEDS: ASPIRIN 81 MG PO SCH (09:29)
--- NOTE | 2022-11-24 11:51 | P.PN ---
Subjective Progress Note Date: 11/24/22 Principal diagnosis: Drug resistant UTI Patient is a 72-year-old male with a past medical history significant for hypertension in this patient who recently did have a prostatectomy done on 10/14/2022 and the patient mention that his Zaragoza catheter was discontinued on 10/25/2022 patient seem to have a problem with burning of urine some hematuria deep pelvic and flank pain, patient apparently did have an outpatient UA and culture that was resistant to Cipro that the patient is on and the patient has been sent to the hospital for IV antibiotic therapy. On today's evaluation that is 11/24/2022, the patient denies any fever or any chills, the patient is breathing comfortably on room air and no need for supplemental oxygen, the patient denies chest pain or cough, patient denies nausea/vomiting /diarrhea, and no diarrhea, the patient did have improvement/resolution of his urinary symptoms Patient did have a white count of 7.08, creatinine is 1.3 as of 11/21/2022, UA done yesterday did not show any WBC Objective - Vital Signs Vital signs: Vital Signs Temp 98.0 F 11/24/22 07:47 Pulse 68 11/24/22 07:47 Resp 16 11/24/22 07:47 BP 116/63 11/24/22 07:47 Pulse Ox 96 11/24/22 07:47 FiO2 Intake & Output 11/23/22 11/24/22 11/24/22 18:59 06:59 18:59 Intake Total 720 118 Balance 720 118 Intake: Oral 720 118 Other: Voiding Method Toilet Toilet # Voids 2 1 - Exam GENERAL DESCRIPTION: An elderly male lying in bed in no distress RESPIRATORY SYSTEM: Unlabored breathing , decreased breath sounds at bases HEART: S1 S2 regular rate and rhythm , ABDOMEN: Soft , no tenderness EXTREMITIES: No edema feet - Labs CBC & Chem 7: 11/21/22 05:42 11/21/22 05:42 Labs: Abnormal Lab Results - Last 24 Hours (Table) 11/23/22 Range/Units 14:30 Urine Protein Trace H (Negative) Ur Leukocyte Esterase Trace H (Negative) Urine Bacteria Rare H (None) /hpf Urine Mucus Occasional H (None) /hpf Assessment and Plan (1) UTI (urinary tract infection) Current Visit: Yes Status: Acute Code(s): N39.0 - URINARY TRACT INFECTION, SITE NOT SPECIFIED SNOMED Code(s): 80015368 Plan: 1patient with a urinary symptoms of burning deep pelvic pain in this patient symptom has been going on for he did have a prostatectomy on 10/14/2022 followed by removal of the Zaragoza catheter on 10/25/2022 patient was evaluated in the ER on 11/10/2022 was evidence of any prostate bed abscess, apparently the patient did have a urine culture done in the outpatient setting which did grow resistant pathogen currently I do not have access to that urine culture as it was not thr [facility] 2-urine culture from PCP office did grew ESBL E. coli and the patient urine culture done here also grew ESBL E. coli 3patient is behaving more of a cystitis and has received a three-day course of Invanz which should be more than enough UA done yesterday did not show any WBC, no need for any antibiotics on discharge patient has been advised if any recurrence of urinary symptoms to let me know otherwise follow-up as needed Dictation was produced using [employer] dictation software. please excuse any grammatical, word or spelling errors. Time with Patient: Less than 30
--- NOTE | 2022-11-24 14:11 | P.DS ---
Providers Date of admission: 11/19/22 22:22 Expected date of discharge: 11/24/22 Attending physician: Jayson Ansari Consults: 11/19/22 22:22 Consult Physician Routine Consulting Provider: Basil Philip Consult Reason/Comments: uti, multidrug resistance per outpatient cultures Do you want consulting provider notified?: Yes 11/22/22 13:24 Consult Physician Routine Consulting Provider: Ihsan Holloway Consult Reason/Comments: prostate infection Do you want consulting provider notified?: Yes Primary care physician: Dup[facility] Hospital Course: Hospital course: 72-year-old gentleman with past medical history significant for dyslipidemia, hypertension who had a recent radical prostatectomy with biopsy showing adenocarcinoma presents to the emergency department with complains of dysuria. Patient has been following up with urology outpatient and has been having increased frequency and urination issues. Patient followed up with primary care physician who prescribed ciprofloxacin which was started on 11/18/22. Outpatient urine cultures were collected however patient was asked to come to the emergency for IV antibiotics due to concern for multi drug resistant organism. * Workup initiated at time of presentation in ER included hematology which showed normal WBC count normal hemoglobin and normal platelet count. Serum chemistry was obtained which showed essentially normal electrolyte panel normal renal function lactate was within normal limits as well * Patient was started on IV cefepime with consultations from infectious disease * Patient seen and evaluated bedside. Patient states dysuria has improved. We'll follow up on final cultures. Serum chemistry and hematology shows no leukocytosis normal electrolyte panel November 22: I assumed care of the patient today. Laying in bed. Comforter. Some deep pelvis discomfort with slight dysuria. Eating good. Had a bowel movement. Had a fever like sensation this morning. Urology Dr. holloway consulted. November 23: Up to the bathroom. Mild pelvic discomfort. Oral intake good. Remains on IV ertapenem.- November 24: Patient doing much better. Seen by ID. To be discharged without any further antibiotics. Patient to follow with Dr. holloway. Questions answered. On examination: VITAL SIGNS: 98, 68, 16, 106/53, 96% room air GENERAL APPEARANCE: Sitting at the edge of the bed comfortable HEENT: Normal external appearance of nose and ear. Oral cavity normal EYES: Pupils equal. Conjunctiva normal. NECK: JVD not raised. Mass not palpable. RESPIRATORY: Respiratory effort normal. Lungs clear to auscultation. CARDIOVASCULAR: First and second sounds normal. No edema. ABDOMEN: Soft. Liver and spleen not palpable. No tenderness. No mass palpable. PSYCHIATRY: Alert and oriented x3. Mood and affect normal. INVESTIGATIONS, reviewed in the clinical context: 11/21/2022: White count 7.0 hemoglobin 12.6 platelets 318 sodium 142 potassium 4.4 creatinine 1.3 Urine culture [November 19]: E. coli/ESBL Assessment and plan * Acute Urinary tract infection, with cystitis status post radical prostatectomy. Antibiotic course completed * adenocarcinoma of prostate-followed by Dr. holloway * Coronary artery disease history of PCI on left circumflex 2020-aspirin Lipitor Coreg * Essential Hypertension-Coreg Cozaar * Hyperlipidemia-Lipitor -Full code Disposition: Home Plan - Discharge Summary New Discharge Prescriptions: Continue Aspirin 81 mg PO DAILY #30 tab Losartan Potassium [Cozaar] 50 mg PO BID carvediloL [Coreg] 3.125 mg PO BID Nitroglycerin Sl Tabs [Nitrostat] 0.4 mg SUBLINGUAL Q5M PRN #30 tab PRN Reason: Chest Pain Atorvastatin [Lipitor] 80 mg PO HS Discharge Medication List Aspirin 81 mg PO DAILY #30 tab 12/06/20 [Rx] Nitroglycerin Sl Tabs [Nitrostat] 0.4 mg SUBLINGUAL Q5M PRN #30 tab 12/06/20 [Rx] Losartan Potassium [Cozaar] 50 mg PO BID 02/11/21 [History] Atorvastatin [Lipitor] 80 mg PO HS 10/11/22 [History] carvediloL [Coreg] 3.125 mg PO BID 10/11/22 [History] Follow up Appointment(s)/Referral(s): Dontrell Bojorquez DO [Primary Care Provider] - 1-2 days Ihsan Holloway MD [STAFF PHYSICIAN] - 12/09/22 8:40 am Basil Philip MD [STAFF PHYSICIAN] - 10 Days Patient Instructions/Handouts: Urinary Tract Infection in Men (DC) Activity/Diet/Wound Care/Special Instructions: antibiotics per dr philip Discharge Disposition: HOME SELF-CARE
== END 2022-11-24 12:20 | disposition home or self-care (01) ==
LOC: EC 15:11 → INTOOBSV 22:22 → 6NMEDSUR 22:22 → UNDODISIN 11-24 12:20
PROVIDERS: ADMIT Hospitalist; ATTEND Hospitalist
DX: N30.00 Acute cystitis without hematuria (principal); I10 Essential (primary) hypertension; E78.5 Hyperlipidemia, unspecified; I25.10 Atherosclerotic heart disease of native coronary artery without angina pectoris; Z85.46 Personal history of malignant neoplasm of prostate; Z95.5 Presence of coronary angioplasty implant and graft; Z79.82 Long term (current) use of aspirin; Z79.899 Other long term (current) drug therapy
CPT/HCPCS: 96366 ×6; 96367; 96365; 99285; 36415; 80053; 80048 ×2; 83605; 85025 ×2; 85027; 81001 ×2; 87086; 87077; 87186; G0378 ×6; J0692 ×4; J1335 ×3

== ENCOUNTER → 2023-12-15 | Day surgery (SDC) | payer MEDICARE ==
[~2023-12-15] MED LIST changes: +ALPRAZolam 0.25 MG TAB PO PRN; +ALPRAZolam 0.5 MG TAB PO PRN; +ASPIRIN 325 MG TAB PO STA; +ATORVASTATIN 80 MG TAB PO STA; +HEPARIN SODIUM,PORCINE (1 ML) 2,500 UNIT in SODIUM CHLORIDE 0.9% 250 ML IRRIGATION PRN; +HEPARIN SODIUM,PORCINE 10,000 UNIT in SODIUM CHLORIDE 0.9% 1,000 ML IRRIGATION PRN; -HEPARIN SODIUM,PORCINE/PF 5,000 UNIT/0.5 ML SYRINGE SQ PRN; +NITROGLYCERIN SL TABS 0.4 MG TAB SUBLINGUAL PRN; +RX INFO: IV CONTRAST WAS GIVEN 1 EACH MISC MISCELLANE PRN; +SODIUM CHLORIDE 0.9% 1,000 ML IV SCH
[2023-12-15] MEDS: SODIUM CHLORIDE 0.9% 1,000 ML in EMPTY BAG 1 BAG IV SCH (09:10)
[2023-12-15] MEDS: IV FLUID CONTINUATION 1,000 ML IV ONE (09:10)
[2023-12-15 09:27] LABS: Basophils % (A) 0 %; Eosinophils # (A) 0.2 k/uL (0-0.7); Eosinophils % (A) 3 %; HCT 47.6 % (39.0-53.0); HGB 15.5 gm/dL (13.0-17.5); Lymphocytes # (A) 1.5 k/uL (1.0-4.8); Lymphocytes % (A) 23 %; MCH 29.5 pg (25.0-35.0); MCHC 32.7 g/dL (31.0-37.0); MCV 90.3 fL (80.0-100.0); Mean Platelet Volume 6.6; Monocytes # (A) 0.4 k/uL (0-1.0); Monocytes % (A) 5 %; Neutrophils # (A) 4.5 k/uL (1.3-7.7); Neutrophils % (A) 67 %; Platelet Count 278 k/uL (150-450); RBC 5.27 m/uL (4.30-5.90); RDW 12.3 % (11.5-15.5); WBC 6.7 k/uL (3.8-10.6)
[2023-12-15] MEDS: carvediloL 3.125 MG TAB PO STA (09:31)
[2023-12-15] MEDS: LOSARTAN 50 MG TAB PO STA (09:32)
[2023-12-15 09:35] LABS: African American GFR (CKD) 69 (>60 ml/min/1.73 sqM); Anion Gap 6 mmol/L; Blood Urea Nitrogen 23 mg/dL (9-20); Calcium 8.9 mg/dL (8.4-10.2); Carbon Dioxide 24 mmol/L (22-30); Chloride 112 mmol/L (98-107); Glucose 120 mg/dL (74-99); Non-African American GFR(CKD) 60 (>60 ml/min/1.73 sqM); Potassium 4.4 mmol/L (3.5-5.1); Sodium 142 mmol/L (137-145)
[2023-12-15 09:50] VITALS: RESP 16; TEMP 98
[2023-12-15] MEDS: HEPARIN SODIUM,PORCINE (1 ML) 2,500 UNIT in SODIUM CHLORIDE 0.9% 250 ML IRRIGATION ONE (10:10)
[2023-12-15] MEDS: HEPARIN SODIUM,PORCINE 10,000 UNIT in SODIUM CHLORIDE 0.9% 1,000 ML IRRIGATION ONE (10:10)
[2023-12-15] MEDS: fentaNYL (PF) 50 MCG/ML 2 ML AMP IVP ONE (10:20)
[2023-12-15] MEDS: MIDAZOLAM 2 MG/2 ML VIAL IVP ONE (10:20)
[2023-12-15] MEDS: LIDOCAINE 1% INJ 10MG/ML (20 ML MDV) SQ ONE (10:21)
[2023-12-15] MEDS: VERAPAMIL SYRINGE (5 MG/10 ML) INTRAARTER ONE (10:23)
[2023-12-15] MEDS: HEPARIN SODIUM 1,000 UN/ML (10ML VL) IV ONE (10:25)
[2023-12-15] MEDS: IOPAMIDOL-370 100ML BTL INJ ONE (10:33)
--- NOTE | 2023-12-15 10:43 | P.PCN ---
Date of Procedure: 12/15/23 Operative Findings: CARDIAC CATHETERIZATION PERFORMING PHYSICIAN: Catrachito Prieto MD, RPVI PROCEDURE PERFORMED: 1. Selective right and left coronary angiogram 2. Left heart catheterization 3. Ultrasound-guided access of the right radial artery INDICATION: Cardiomyopathy and abnormal myocardial perfusion imaging stress test COMPLICATION: None APPROACH: Right radial artery LEVEL OF SEDATION: Moderate with a sedation length of 13 minutes PROCEDURE DESCRIPTION: After obtaining an informed consent, the patient was brought to cardiac rn cardiac cath. Local anesthesia was performed using lidocaine subcutaneously. The right radial artery was cannulated using Seldinger technique, the guidewire passed eas elma, following that we advanced a 5-Namibian sheath dilator assembly, the wire and dilator were removed and sheath was flushed. Following that, 2 mg of verapamil along with 5000 unit heparin were given. Selective right and left coronary angiogram using a 6-Namibian JR4 and JL 3.5 catheters. Following that we did left heart catheterization using 6-Namibian pigtail catheter. The procedure was completed there was no complication. SELECTIVE CORONARY ANGIOGRAM: The right coronary artery: Large-caliber vessel with patent stent in the midportion Left main: Has mild disease distal The left circumflex: Large-caliber vessel nondominant vessel with mild to moderate disease involving the midportion The left anterior descending artery: Large-caliber vessel. Ostial has mild disease appears to be in the range of 30%. The mid LAD has intermediate lesion appears to be in the range of 40 to 50%. Gives rise into a large diagonal branch which has also intermediate disease. The disease has not changed compared to before HEMODYNAMICS: The LVEDP was 13 mmHg with no significant gradient across aortic valve CONCLUSION: 1. Intermediate disease involving the mid LAD and the mid diagonal branch of the LAD appears to be the same as before 2. Normal left-sided filling pressure POSTPROCEDURE MANAGEMENT: Medical treatment
[2023-12-15 19:06] VITALS: BP 137/72; PULSE 68
== END ==
LOC: CATHCVL 08:49
PROVIDERS: ATTEND Internal Medicine Interventional Cardiology
DX: I42.9 Cardiomyopathy, unspecified (principal); I25.10 Atherosclerotic heart disease of native coronary artery without angina pectoris; I10 Essential (primary) hypertension; E78.5 Hyperlipidemia, unspecified
CPT/HCPCS: 93458; 80048; 85025; 99152; C1769; C1894; J2250; J1644 ×3; J2003; J3010; Q9967

== ENCOUNTER 2024-02-25 14:03 | Emergency (ER) | payer MEDICARE ==
[2024-02-25 15:16] VITALS: RESP 18
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
[2024-02-25 16:01] LABS: Appearance,Urine Clear (Clear); Bilirubin,Urine Negative (Negative); Blood,Urine Negative (Negative); Color,Urine Light Yellow; Glucose,Urine (UA) Negative (Negative); Ketones,Urine Negative (Negative); Leukocyte Esterase,Urine Negative (Negative); Nitrite,Urine Negative (Negative); Protein,Urine Negative (Negative); Specific Gravity,Urine 1.021 (1.001-1.035); Urobilinogen,Urine <2.0 mg/dL (<2.0)
--- NOTE | 2024-02-25 16:03 | XR ---
EXAMINATION TYPE: XR chest 2V DATE OF EXAM: 02/25/2024 3:44 PM COMPARISON: Chest radiographs from 07/19/2019 CLINICAL INDICATION: Male, 73 years old with history of Dizzy, SOB; TECHNIQUE: XR chest 2V Frontal and lateral views of the chest. FINDINGS: Lungs/Pleura: There is flattening of the diaphragm with increased lucency of the lungs. No evidence o f pneumothorax, pleural effusion or focal consolidation. Pulmonary vascularity: Unremarkable. Heart/mediastinum: Cardiomediastinal silhouette is unremarkable. Musculoskeletal: No acute osseous pathology. IMPRESSION: 1. No acute cardiopulmonary disease process. 2. COPD changes. [facility], , 02/25/2024 4:01 PM
[2024-02-25 16:21] LABS: Basophils % (A) 0 %; Eosinophils # (A) 0.1 k/uL (0-0.7); Eosinophils % (A) 2 %; HCT 40.4 % (39.0-53.0); HGB 12.8 gm/dL (13.0-17.5); Hypochromasia Slight; Lymphocytes # (A) 1.9 k/uL (1.0-4.8); Lymphocytes % (A) 21 %; MCHC 31.6 g/dL (31.0-37.0); MCV 88.5 fL (80.0-100.0); Mean Platelet Volume 6.7; Monocytes # (A) 0.6 k/uL (0-1.0); Monocytes % (A) 7 %; Neutrophils # (A) 6.3 k/uL (1.3-7.7); Neutrophils % (A) 68 %; Platelet Count 423 k/uL (150-450); RBC 4.56 m/uL (4.30-5.90); RDW 11.8 % (11.5-15.5); WBC 9.3 k/uL (3.8-10.6)
[2024-02-25 16:33] LABS: ALT 15 U/L (4-49); AST 20 U/L (17-59); African American GFR (CKD) 84 (>60 ml/min/1.73 sqM); Albumin 3.6 g/dL (3.5-5.0); Alkaline Phosphatase 95 U/L (38-126); Anion Gap 5 mmol/L; Blood Urea Nitrogen 19 mg/dL (9-20); Calcium 9.3 mg/dL (8.4-10.2); Carbon Dioxide 31 mmol/L (22-30); Chloride 104 mmol/L (98-107); Glucose 102 mg/dL (74-99); Magnesium 2.1 mg/dL (1.6-2.3); Non-African American GFR(CKD) 73 (>60 ml/min/1.73 sqM); Potassium 4.9 mmol/L (3.5-5.1); Sodium 140 mmol/L (137-145); Total Bilirubin 0.4 mg/dL (0.2-1.3); Total Protein 6.7 g/dL (6.3-8.2)
[2024-02-25 16:36] LABS: INR 0.9 (<1.2); Partial Thromboplastin Time 24.5 sec (22.0-30.0)
[2024-02-25 17:03] VITALS: TEMP 98
[2024-02-25] MEDS: HYDROcodone/APAP 7.5-325MG 1 EACH TAB PO ONE (17:52)
[2024-02-25] MEDS: SODIUM CHLORIDE 0.9% 500 ML 500 ML IV ONE (17:53)
--- NOTE | 2024-02-25 17:59 | US ---
EXAMINATION TYPE: US scrotum with doppler. DATE OF EXAM: 02/25/2024 COMPARISON: US, CT 2022 CLINICAL INDICATION: Male, 73 years old with history of L testicle pain; Left testicle pain since Nov. Hx prostatectomy 2022. TECHNIQUE: Grayscale, color Doppler and spectral Doppler imaging of the scrotum. FINDINGS: EXAM MEASUREMENTS: TESTICLES: Right Testicle: 4.8 x 2.7 x 2.0 cm. Appears slightly heterogeneous. Left Testicle: 3.9 x 3.3 x 2.2 cm. Appears slightly heterogeneous. EPIDIDYMIS HEAD: Right Epididymis: 0.8 x 1.1 x 0.8 cm. Anechoic area seen: 0.3 x 0.4 x 0.4 cm. Left Epididymis: 0.8 x 0.8 x 0.8 cm. Anechoic area seen: 0.6 x 0.8 x 0.9 cm. Doppler performed to assess for testicular vascularity; bilateral color flow and spectral waveforms a re seen. Presence of hydroceles: Yes, appears complex bilaterally. Right: 4.0 x 1.2 x 4.8 cm. Left: 1.2 x 1.4 x 0.8 cm. Presence of varicoceles: Prominent vessels seen lateral to both testicles measuring up to 2.8 mm on the right and 3.4 mm on the left. Left testicle appears slightly smaller in size in comparison to the right testicle. IMPRESSION: 1. Slightly asymmetrically increased vascular flow within the right testes compared to the left. Cor relate for right epididymoorchitis. 2. Appropriate arterial and venous spectral waveforms to the testes. 3. No evidence for intratesticular mass. 4. Left varicocele. 5. Bilateral hydroceles with floating debris. [facility], , 02/25/2024 5:57 PM
[2024-02-25] MEDS: ACET/COD 300 MG/30 MG STARTER PACK 6 TAB BTL PO STA (19:43)
[2024-02-25 19:48] VITALS: BP 152/98; PULSE 69
== END 2024-02-25 19:56 | disposition home or self-care (01) ==
LOC: EC 14:03
DX: N45.3 Epididymo-orchitis (principal)
CPT/HCPCS: 36415; 71046; 76870; 80053; 81003; 82550; 83605; 83735; 84484; 85025; 85610; 85730; 93005; 93975; 99284

== ENCOUNTER → 2024-07-27 | Outpatient (CLI) | payer MEDICARE ==
--- NOTE | 2024-07-27 19:00 | PE ---
EXAMINATION TYPE: PET CT fusion skull to thigh DATE OF EXAM: 07/27/2024 CLINICAL INDICATION:Male, 73 years old with history of C61 prostate ca; TECHNIQUE: Following the intravenous administration of 5.18 mCi of Ga-68 Illuccix (PSMA), whole bod y images are performed from the skull base to the Mid thigh. Images are reviewed on the computer in the coronal, axial, and sagittal planes. Reconstructed rotating images are created on independent [employer] and reviewed on the computer. A non-contrast CT is performed in conjunction with the PET scan. CT DLP: 1516.9 mGycm, Automated exposure control for dose reduction was used. COMPARISON: CT None, PET/CT 10/08/2022, MRI: None FINDINGS: Mediastinal SUV mean is 1.9. Hepatic parenchyma SUV mean is 8.3. SKULL BASE AND NECK: No suspicious radiotracer activity. Misregistration artifact projecting over fa ce. CHEST, MEDIASTINUM, AND HILAR REGION: No suspicious radiotracer activity. ABDOMEN AND PELVIS: * The prostate gland has been surgically removed. * No lymphadenopathy with increased radiotracer activity identified. MUSCULOSKELETAL STRUCTURES: No suspicious radiotracer activity. Areas on prior CT abdomen 09/03/2022 d o not definitively have uptake on this exam. These are all subcentimeter foci of sclerotic bone. Thes e were present on 12/04/[address] CT: Atherosclerosis of the arterial vasculature including the coronary arteries. Scattered colo eduardo diverticula. Prostate gland is enlarged. IMPRESSION: 1. Surgically absent prostate gland No evidence for metastatic disease at this time. 2. Sclerotic foci present on prior CT are also present on exam on 12/04/2020 and are stable. These a re favored represent bone islands given lack of radiotracer uptake. [facility], , 07/27/2024 6:57 PM
== END | disposition home or self-care (01) ==
LOC: RADPETMAIN 08:35
PROVIDERS: ATTEND Urology
DX: C61 Malignant neoplasm of prostate (principal)
CPT/HCPCS: 78815; A9596